=== PATIENT | male | born 1960 ===

== ENCOUNTER 2018-11-30 10:35 | Inpatient (IN) | payer MEDICAID ==
[2018-11-30] MEDS ORDERED: Sodium Chloride 0.9% 1,000 ML IV STA ×3 (11:25→15:54)
[2018-11-30 11:45] LABS: BASO % 0.4 % (0.0-2.0); EOS # 0.1 K/uL (0.0-0.7); EOS % 0.9 % (0.0-4.0); HEMOGLOBIN 15.2 g/dL (12.0-18.0); LYMPH # 0.8 K/uL (1.0-4.3); LYMPH % 6.6 % (20.0-40.0); MEAN CELL VOLUME 78.6 fl (80.0-94.0); MEAN CORPUSCULAR HEMOGLOBIN 25.7 pg (27.0-31.0); MEAN CORPUSCULAR HGB CONC 32.7 g/dL (33.0-37.0); MEAN PLATELET VOLUME 8.7 fl (7.2-11.7); MONO # 0.8 K/uL (0.0-0.8); MONO % 7.1 % (0.0-10.0); NEUT # 9.7 K/uL (1.8-7.0); PLATELET COUNT 187 K/uL (130-400); RBC 5.91 Mil/uL (4.40-5.90); RED CELL DISTRIBUTION WIDTH 13.8 % (11.5-14.5); WHITE BLOOD COUNT 11.4 K/uL (4.8-10.8)
[2018-11-30 11:46] LABS: VENOUS BLOOD GAS BASE EXCESS 2.8 mmol/L (0.0-2.0); VENOUS BLOOD GAS PCO2 40 mmHg (40-60); VENOUS BLOOD GAS PO2 26 mm/Hg (30-55); VENOUS BLOOD PH 7.44 (7.32-7.43)
--- NOTE | 2018-11-30 11:50 | ED PDOC ---
HPI: Eye Injury/Pain Time Seen by Provider: 11/30/18 11:13 Chief Complaint (Nursing): Eye Problem Chief Complaint (Provider): psoriasis History Per: Patient History/Exam Limitations: no limitations Onset/Duration Of Symptoms: Days (x6) Current Symptoms Are (Timing): Still Present Additional Complaint(s): 58 year old male with medical history of psoriasis, glaucoma, and pre-diabetes, presents to the emergency department with a complaint of "the worse headache in his life" for the past 6 days. He reports associated eye pain with vision, nausea and vomiting when lying on his back. Patient states symptoms do not feel like typical glaucoma and that he had the flu 1 week ago with full recovery. Additionally, patient received a Humira injection 1 week ago and has worsening redness and tenderness on left, lateral arm along area of psoriasis, in which, he states "might be infected". Of note, patient has an allergy to a component of Ibuprofen but not Ibuprofen itself, however, he is unsure what he can tolerate. PCP: none provided Past Medical History Reviewed: Historical Data, Nursing Documentation, Vital Signs Vital Signs: Last Vital Signs Temp 102.1 F H 11/30/18 11:26 Pulse 123 H 11/30/18 11:26 Resp 20 11/30/18 11:26 BP 142/73 11/30/18 11:26 Pulse Ox 98 11/30/18 11:26 - Medical History PMH: Diabetes (pre-) Other PMH: glaucoma; psoriasis - Family History Family History: States: Unknown Family Hx - Home Medications Home Medications: Ambulatory Orders Medication Instructions Recorded No Known Home Med 11/30/18 - Allergies Allergies/Adverse Reactions: Allergies Allergy/AdvReac Type Severity Reaction Status Date / Time detergent Allergy Mild RASH Uncoded 11/30/18 10:57 Review of Systems ROS Statement: Except As Marked, All Systems Reviewed And Found Negative Eyes: Positive for: Pain (bilaterally with positional movement) Gastrointestinal: Positive for: Nausea, Vomiting Musculoskeletal: Positive for: Arm Pain (left, lateral arm with redness) Neurological: Positive for: Headache Physical Exam - Reviewed Nursing Documentation Reviewed: Yes Vital Signs Reviewed: Yes - Physical Exam Appears: Positive for: Uncomfortable Head Exam: Positive for: ATRAUMATIC, NORMAL INSPECTION, NORMOCEPHALIC Skin: Positive for: Warm (area of psoriasis on all extremities with extensive area of erythema to left arm, psoriasis plaque ) Eye Exam: Positive for: Normal appearance, EOMI, PERRL, Other (squinting eyes, holding head in hands) ENT: Positive for: Normal ENT Inspection, TM Is/Are (clear bilaterally). Negative for: Pharyngeal Erythema Neck: Positive for: Normal, Painless ROM, Supple Cardiovascular/Chest: Positive for: Regular Rate, Rhythm Respiratory: Positive for: Normal Breath Sounds. 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 Negative for: Motor/Sensory Deficits - Laboratory Results Result Diagrams: 12/01/18 06:14 12/01/18 06:14 Lab Results: pO2 26 mm/Hg (30-55) L 11/30/18 11:29 VBG pH 7.44 (7.32-7.43) H 11/30/18 11:29 VBG pCO2 40 mmHg (40-60) 11/30/18 11:29 VBG HCO3 25.6 mmol/L 11/30/18 11:29 VBG Total CO2 28.4 mmol/L (22-28) H 11/30/18 11:29 VBG O2 Sat (Calc) 52.0 % (40-65) 11/30/18 11:29 VBG Base Excess 2.8 mmol/L (0.0-2.0) H 11/30/18 11:29 VBG Potassium 4.3 mmol/L (3.6-5.2) 11/30/18 11:29 Sodium 134.0 mmol/L (132-148) 11/30/18 11:29 Chloride 96.0 mmol/L (98-107) L 11/30/18 11:29 Glucose 163 mg/dL (75-110) H 11/30/18 11:29 Lactate 2.7 mmol/L (0.7-2.1) H 11/30/18 11:29 FiO2 21.0 % 11/30/18 11:29 - ECG O2 Sat by Pulse Oximetry: 98 (RA) Pulse Ox Interpretation: Normal Medical Decision Making Medical Decision Making: Time: 1125 Initial Plan: work-up for severe headache and bodyaches. rule-out intracranial pressure as patient reports headache is the worse in his life. Infectious work- up for possible cellulitis. * Labs with blood culture * CT head * CXR * IV fluids * Reglan IVP * Tylenol PO Time: 1203 --CXR FINDINGS: LUNGS: Basilar atelectasis/scarring. No active pulmonary disease. PLEURA: Mild elevation of the left hemidiaphragm. No significant pleural effusion identified, no pneumothorax apparent. CARDIOVASCULAR: Aortic atherosclerotic calcifications. Cardiomediastinal silhouette within normal limits. OSSEOUS STRUCTURES: Spinal degenerative changes. VISUALIZED UPPER ABDOMEN: Normal. OTHER FINDINGS: None. IMPRESSION: No active disease. Time: 1239 PROCEDURE: CT HEAD WITHOUT CONTRAST. HISTORY: worsening headache with vision change COMPARISON: None available. TECHNIQUE: Axial computed tomography images were obtained through the head/brain without intravenous contrast. Radiation dose: Total exam DLP = 796.93 mGy-cm. This CT exam was performed using one or more of the following dose reduction techniques: Automated exposure control, adjustment of the mA and/or kV according to patient size, and/or use of iterative reconstruction technique. FINDINGS: HEMORRHAGE: No intracranial hemorrhage. BRAIN: No mass effect or edema. Mild atrophy. Mild chronic microvascular ischemic changes. VENTRICLES: Unremarkable. No hydrocephalus. CALVARIUM: Unremarkable. PARANASAL SINUSES: Unremarkable as visualized. No significant inflammatory changes. MASTOID AIR CELLS: Unremarkable as visualized. No inflammatory changes. OTHER FINDINGS: None. IMPRESSION: No acute intracranial pathology. Mild age-related changes. 1530 Pt with improved symptoms. Pt continues to have erythema to left arm and now notices erythema to right leg. Labs show left shift but no elevated WBC. Pt states he wants to go home and will be given antibiotics for cellulitis coverage. Pt to follow up with PMD on Sunday. Will return to the emergency department if symptoms worsen or if new symptoms develop. 1545 On discharge, repeat vitals showed temperature and HR had gone back up. Pt meeting sepsis criteria but not severe sepsis. 3rd liter of IV fluids being given now. Given additional Tylenol and Clindamycin. Spoke with [employer] Erick Gonzalez for admission under Dr. Hull (pt's PMD is Lj Seaman). Scribe Attestation: Documented by Elvi Pandey, acting as a scribe for Marialuisa Aragon MD. Provider Scribe Attestation: All medical record entries made by the Scribe were at my direction and personally dictated by me. I have reviewed the chart and agree that the record accurately reflects my personal performance of the history, physical exam, medical decision making, and the department course for this patient. I have also personally directed, reviewed, and agree with the discharge instructions and disposition. Disposition - Clinical Impression Clinical Impression: Headache, Cellulitis - Disposition Disposition Time: 15:45 Condition: GUARDED
[2018-11-30 11:57] LABS: BLOOD UREA NITROGEN 15 mg/dl (9-20); CALCIUM 9.5 mg/dL (8.4-10.2); GFR NON-AFRICAN AMERICAN > 60
--- NOTE | 2018-11-30 12:07 | RAD ---
Date of service: 11/30/2018 HISTORY: possible admission COMPARISON: No prior. TECHNIQUE: 1 view obtained. FINDINGS: LUNGS: Basilar atelectasis/scarring. No active pulmonary disease. PLEURA: Mild elevation of the left hemidiaphragm. No significant pleural effusion identified, no pneumothorax apparent. CARDIOVASCULAR: Aortic atherosclerotic calcifications. Cardiomediastinal silhouette within normal limits. OSSEOUS STRUCTURES: Spinal degenerative changes. VISUALIZED UPPER ABDOMEN: Normal. OTHER FINDINGS: None. IMPRESSION: No active disease.
[2018-11-30 12:26] LABS: BANDS 5 % (0-2); EOSINOPHIL 1 % (0-7); LYMPHOCYTE 5 % (20-50); MONOCYTE 9 % (0-10); NEUTROPHIL 80 % (42-75); PLATELET ESTIMATE NORMAL (NORMAL); TOTAL CELLS COUNTED 100
--- NOTE | 2018-11-30 12:42 | CT ---
Date of service: 11/30/2018 PROCEDURE: CT HEAD WITHOUT CONTRAST. HISTORY: worsening headache with vision change COMPARISON: None available. TECHNIQUE: Axial computed tomography images were obtained through the head/brain without intravenous contrast. Radiation dose: Total exam DLP = 796.93 mGy-cm. This CT exam was performed using one or more of the following dose reduction techniques: Automated exposure control, adjustment of the mA and/or kV according to patient size, and/or use of iterative reconstruction technique. FINDINGS: HEMORRHAGE: No intracranial hemorrhage. BRAIN: No mass effect or edema. Mild atrophy. Mild chronic microvascular ischemic changes. VENTRICLES: Unremarkable. No hydrocephalus. CALVARIUM: Unremarkable. PARANASAL SINUSES: Unremarkable as visualized. No significant inflammatory changes. MASTOID AIR CELLS: Unremarkable as visualized. No inflammatory changes. OTHER FINDINGS: None. IMPRESSION: No acute intracranial pathology. Mild age-related changes.
[2018-11-30] MEDS ORDERED: Clindamycin 600mg/50ml D5W 600 MG/50 ML VIAL IVPB STA (15:49)
[2018-11-30 20:55] VITALS: BMI 33.5
[2018-11-30] MEDS: Piperacillin/Tazobact 3.375 GM in Sodium Chloride 0.9% 100 ML IVPB SCH (21:10)
[2018-12-01] MEDS: Clindamycin 600mg/50ml NS 600 MG/50 ML BAG IVPB SCH ×2 (00:01→09:18)
[2018-12-01] MEDS: Piperacillin/Tazobact 3.375 GM in Sodium Chloride 0.9% 100 ML IVPB SCH ×4 (03:27→22:14)
[2018-12-01 06:52] LABS: BASO # 0.1 K/uL (0.0-0.2); BASO % 0.3 % (0.0-2.0); HEMOGLOBIN 13.8 g/dL (12.0-18.0); LYMPH # 1.6 K/uL (1.0-4.3); LYMPH % 8.5 % (20.0-40.0); MEAN CELL VOLUME 78.2 fl (80.0-94.0); MEAN CORPUSCULAR HEMOGLOBIN 25.4 pg (27.0-31.0); MEAN CORPUSCULAR HGB CONC 32.5 g/dL (33.0-37.0); MEAN PLATELET VOLUME 8.6 fl (7.2-11.7); MONO # 1.6 K/uL (0.0-0.8); MONO % 8.3 % (0.0-10.0); NEUT # 15.9 K/uL (1.8-7.0); NEUT % 82.9 % (50.0-75.0); RBC 5.44 Mil/uL (4.40-5.90); RED CELL DISTRIBUTION WIDTH 13.9 % (11.5-14.5); WHITE BLOOD COUNT 19.2 K/uL (4.8-10.8)
[2018-12-01 07:05] LABS: ALB/GLOB RATIO 1.2 (1.0-2.1); ALBUMIN 3.7 g/dL (3.5-5.0); ALT/SGPT 43 U/L (21-72); AST/SGOT 35 U/L (17-59); BLOOD UREA NITROGEN 13 mg/dl (9-20); GFR NON-AFRICAN AMERICAN > 60
[2018-12-01] MEDS: Enoxaparin 40 mg Syringe SC SCH (09:18)
--- NOTE | 2018-12-01 12:48 | CP.PCM.CON ---
History of Present Illness - History of Present Illness History of Present Illness: 58 year old male with medical history of psoriasis and pre-diabetes, presents to the emergency department with a complaint of severe headache . He reports associated eye pain with vision, nausea and vomiting when lying on his back. Failed out pt rx for cellulitis with Bactrim Has redness streaking up right leg from psoriatic lesion on RLE + lymphangitis Additionally, patient received a Humira injection 1 week ago and has worsening redness and tenderness on left, lateral arm along area of psoriasis, - Medical History PMH: Diabetes (pre-) Psoriasis on Humira Other PMH: glaucoma; psoriasis - Home Medications Home Medications: Ambulatory Orders Medication Instructions Recorded Sulfamethoxazole/Trimethoprim 1 tab PO BID #20 tab 11/30/18 [Bactrim DS 800 mg-160 mg] - Review of Systems - Review of Systems All systems: reviewed and no additional remarkable complaints except - Constitutional Constitutional: Anorexia, Chills, Fever, Headache - EENT Eyes: absent: As Per HPI, Blind Spots, Blurred Vision, Change in Vision, Decre ased Night Vision, Diplopia, Discharge, Dry Eye, Exophthalmos, Floaters, Irritation, Itchy Eyes, Loss of Peripheral Vision, Pain, Photophobia, Requires Corrective Lenses, Sees Flashes, Spots in Vision, Tunnel Vision, Other Visual Disturbances, Loss of Vision, Other Ears: absent: As Per HPI, Decreased Hearing, Ear Discharge, Ear Pain, Tinnitus, Abnormal Hearing, Disequilibrium, Dizziness, Other Nose/Mouth/Throat: absent: As Per HPI, Epistaxis, Nasal Congestion, Nasal Discharge, Nasal Obstruction, Nasal Trauma, Nose Pain, Post Nasal Drip, Sinus P ain, Sinus Pressure, Bleeding Gums, Change in Voice, Dental Pain, Dry Mouth, Dysphagia, Halitosis, Hoarsness, Lip Swelling, Mouth Lesions, Mouth Pain, Odynophagia, Sore Throat, Throat Swelling, Tongue Swelling, Facial Pain, Neck Pain, Neck Mass, Other - Cardiovascular Cardiovascular: absent: As Per HPI, Acrocyanosis, Chest Pain, Chest Pain at Rest, Chest Pain with Activity, Claudication, Diaphoresis, Dyspnea, Dyspnea on Exertion, Edema, Irregular Heart Rhythm, Pain Radiating to Arm/Neck/Jaw, Leg Edema, Leg Ulcers, Lightheadedness, Orthopnea, Palpitations, Paroxysmal Nocturnal Dyspnea, Pedal Edema, Radiating Pain, Rapid Heart Rate, Slow Heart Rate, Syncope, Other - Respiratory Respiratory: absent: As Per HPI, Cough, Dyspnea, Hemoptysis, Dyspnea on Exertion, Wheezing, Snoring, Stridor, Pain on Inspiration, Chest Congestion, Excessive Mucous Production, Change in Mucous Color, Pain with Coughing, Other - Gastrointestinal Gastrointestinal: absent: As Per HPI, Abdominal Pain, Belching, Bloating, Change in Bowel Habits, Change in Stool Character, Coffee Ground Emesis, Constipation, Cramping, Diarrhea, Dyspepsia, Dysphagia, Early Satiety, Excessive Flatus, Fecal Incontinence, Heartburn, Hematemesis, Hematochezia, Loose Stools, Melena, Nausea, Odynophagia, Temesmus, Vomiting, Other - Genitourinary Genitourinary: absent: As Per HPI, Change in Urinary Stream, Difficulty Urinating, Dysuria, Flank Pain, Hematuria, Pyuria, Nocturia, Urinary Incontinence, Urinary Frequency, Urinary Hesitance, Urinary Urgency, Voiding Freq/Small Amts, Freq UTI, Hx Renal/Bladder Calculi, Hx /Renal Surgery, Bladder Distension, Other - Musculoskeletal Musculoskeletal: absent: As Per HPI, Abnormal Gait, Arthralgias, Atrophy, Back Pain, Deformity, Joint Swelling, Limited Range of Motion, Loss of Height, Muscle Cramps, Muscle Weakness, Myalgias, Neck Pain, Numbness, Radiating Pain into Limb, Stiffness, Tingling, Other - Integumentary Integumentary: As Per HPI - Neurological Neurological: As Per HPI - Psychiatric Psychiatric: absent: As Per HPI, Abnormal Sleep Pattern, Anhedonia, Anxiety, Auditory Hallucinations, Behavioral Changes, Change in Appetite, Change in Libido, Confusion, Depression, Difficulty Concentrating, Hallucinations, Homicidal Ideation, Hopelessness, Irritability, Memory Loss, Mood Swings, Panic Attacks, Paranoia, Suicidal Ideation, Visual Hallucinations, Tactile [place] llucinations, Other - Endocrine Endocrine: absent: As Per HPI, Change in Body Appearance, Change in Libido, Cold Intolorance, Deepening of Voice, Excessive Sweating, Fatigue, Flushing, Heat Intolorance, Increase in Ring/Shoe/Hat Size, Palpitations, Polydipsia, Polyphagia, Polyuria, Other - Hematologic/Lymphatic Hematologic: absent: As Per HPI, Easy Bleeding, Easy Bruising, Lymphadenopathy, Other Past Patient History - Past Medical History & Family History Past Medical History?: Yes - Past Social History Smoking Status: Never Smoked - CARDIAC Hx Cardiac Disorders: No - PULMONARY Hx Respiratory Disorders: No - NEUROLOGICAL Hx Neurological Disorder: No - HEENT Hx HEENT Problems: Yes Hx Glaucoma: Yes - RENAL Hx Chronic Kidney Disease: No - ENDOCRINE/METABOLIC Hx Endocrine Disorders: No - HEMATOLOGICAL/ONCOLOGICAL Hx Blood Disorders: No - INTEGUMENTARY Hx Dermatological Problems: Yes Hx Psoriasis: Yes - MUSCULOSKELETAL/RHEUMATOLOGICAL Hx Musculoskeletal Disorders: No Hx Falls: No - GASTROINTESTINAL Hx Gastrointestinal Disorders: No - GENITOURINARY/GYNECOLOGICAL Hx Genitourinary Disorders: No - PSYCHIATRIC Hx Psychophysiologic Disorder: No Hx Substance Use: No - SURGICAL HISTORY Hx Surgeries: Yes - ANESTHESIA Hx Anesthesia: Yes Hx Anesthesia Reactions: No Hx Malignant Hyperthermia: No Has any member of the family had a problem w/ anesthesia?: No Meds Allergies/Adverse Reactions: Allergies Allergy/AdvReac Type Severity Reaction Status Date / Time detergent Allergy Mild RASH Uncoded 11/30/18 10:57 - Medications Medications: Current Medications Acetaminophen (Tylenol 325mg Tab) 650 mg PO Q6 PRN PRN Reason: Pain, Mild (1-3) Enoxaparin Sodium (Lovenox) 40 mg SC DAILY ISSA; Protocol Last Admin: 12/01/18 09:18 Dose: 40 mg Clindamycin Phosphate (Cleocin 600mg/50ml Ns) 600 mg in 50 mls @ 100 mls/hr IVPB Q8 ISSA; Protocol Last Admin: 12/01/18 09:18 Dose: 100 mls/hr Piperacillin Sod/Tazobactam (Sod 3.375 gm/ Sodium Chloride) 100 mls @ 100 mls/hr IVPB Q6 ISSA; Protocol Last Admin: 12/01/18 09:18 Dose: 100 mls/hr Morphine Sulfate (Morphine) 2 mg IVP Q4 PRN PRN Reason: Pain, severe (8-10) Tramadol HCl (Ultram) 50 mg PO Q6 PRN PRN Reason: Pain, moderate (4-7) Last Admin: 12/01/18 11:15 Dose: 50 mg Physical Exam - Constitutional Appears: Toxic, In Acute Distress - Head Exam Head Exam: ATRAUMATIC, NORMAL INSPECTION, NORMOCEPHALIC - Eye Exam Eye Exam: EOMI, PERRL. absent: Scleral icterus - ENT Exam ENT Exam: Mucous Membranes Dry, Normal External Ear Exam - Neck Exam Neck exam: Negative for: Lymphadenopathy - Respiratory Exam Respiratory Exam: Decreased Breath Sounds, Clear to Auscultation Bilateral - Cardiovascular Exam Cardiovascular Exam: REGULAR RHYTHM, +S1, +S2 - GI/Abdominal Exam GI & Abdominal Exam: Diminished Bowel Sounds, Soft. absent: Tenderness - Rectal Exam Rectal Exam: Deferred - Exam Exam: NORMAL INSPECTION - Extremities Exam Extremities exam: Positive for: pedal pulses present. Negative for: calf tenderness, normal inspection, pedal edema, tenderness - Back Exam Back exam: FULL ROM. absent: CVA tenderness (L), CVA tenderness (R), paraspinal tenderness - Neurological Exam Neurological exam: Alert, CN II-XII Intact, Oriented x3, Reflexes Normal - Psychiatric Exam Psychiatric exam: Depressed - Skin Skin Exam: Erythema Additional comments: multiple psoriatic lesions with surrounding cellulitis on arms and legs lesion on RLE is the worst- has lymphangitis extending up the leg Results - Vital Signs Recent Vital Signs: Last Vital Signs Temp 98.1 F 12/01/18 11:48 Pulse 89 12/01/18 11:48 Resp 20 12/01/18 11:48 BP 115/74 12/01/18 11:48 Pulse Ox 96 12/01/18 11:48 - Labs Result Diagrams: 12/01/18 06:14 12/01/18 06:14 Labs: Laboratory Results - last 24 hr 11/30/18 12/01/18 12/01/18 17:08 06:14 06:14 WBC 19.2 H D RBC 5.44 Hgb 13.8 Hct 42.6 MCV 78.2 L MCH 25.4 L MCHC 32.5 L RDW 13.9 Plt Count 185 MPV 8.6 Neut % (Auto) 82.9 H Lymph % (Auto) 8.5 L Benson % (Auto) 8.3 Eos % (Auto) 0.0 Baso % (Auto) 0.3 Neut # (Auto) 15.9 H Lymph # (Auto) 1.6 Benson # (Auto) 1.6 H Eos # (Auto) 0.0 Baso # (Auto) 0.1 Sodium 137 Potassium 4.0 Chloride 102 Carbon Dioxide 25 Anion Gap 14 BUN 13 Creatinine 0.9 Est GFR ( Amer) > 60 Est GFR (Non-Af Amer) > 60 Random Glucose 119 H Hemoglobin A1c Lactic Acid 2.2 H Calcium 9.0 Total Bilirubin 1.0 AST 35 ALT 43 Alkaline Phosphatase 116 Total Protein 6.8 Albumin 3.7 Globulin 3.1 Albumin/Globulin Ratio 1.2 12/01/18 12/01/18 06:14 06:14 WBC RBC Hgb Hct MCV MCH MCHC RDW Plt Count MPV Neut % (Auto) Lymph % (Auto) Benson % (Auto) Eos % (Auto) Baso % (Auto) Neut # (Auto) Lymph # (Auto) Benson # (Auto) Eos # (Auto) Baso # (Auto) Sodium Potassium Chloride Carbon Dioxide Anion Gap BUN Creatinine Est GFR ( Amer) Est GFR (Non-Af Amer) Random Glucose Hemoglobin A1c 6.3 Lactic Acid 1.7 Calcium Total Bilirubin AST ALT Alkaline Phosphatase Total Protein Albumin Globulin Albumin/Globulin Ratio Assessment & Plan (1) Sepsis Status: Acute (2) Cellulitis Status: Acute (3) Headache Status: Acute (4) Psoriatic arthropathy Status: Acute (5) Psoriasis Status: Acute - Assessment and Plan (Free Text) Assessment: fever , leukocytosis and headache with lactic acidosis in a 58 yo male with severe cellulitis/ lymphangitis R leg / sepsis on Humira for Psoriasis - ( Immunocompromised state ) Need to cont IV antibiotics await cultures
--- NOTE | 2018-12-01 23:22 | CP.PCM.HP ---
History of Present Illness - History of Present Illness History of Present Illness: HPI: 58 y/o male with a PMH of psoriasis and pre-DM presented to the ED with a headache, which the pt described as the worst in his life, as well as associated N/V and eye pain. Of note, the pt received his first injection of Zoila 1 week ago for Psoriasis. Since then, the pt reports worsening erythema to the left upper extremity and right leg. He was treated with Bactrim, outpatient, however no relief was reported. PMH: Pre-diabetes, Glaucoma, Psoriasis. PSH: None. Allergies: Detergent, unspecified ingredient in ibuprofen. Subjective Review of Systems: Reviewed and no additional remarkable complaints except reddened painful skin to bilateral upper extremities and right leg. Objective Vital Signs Stable Appears: Anxious, Non-toxic, No Acute Distress. Head Exam: NORMAL INSPECTION, normocephalic. Eye Exam: Normal eye inspection, EOMI, PERRLA. Respiratory Exam: NORMAL BREATHING PATTERN, breath sounds clear bilaterally. Cardiovascular Exam: +S1, +S2. RRR. GI & Abdominal Exam: Soft, diffuse tenderness, distended. Bowel sounds normoactive. Neurological Exam: Alert, Awake, Oriented x3. Musculoskeletal Exam: 5/5 BUE strength, 5/5 BLE strength. Psychiatric exam: Normal mood. Calm and cooperative. Skin Exam: Erythema and psoriatic lesions to left upper extremity. Area of cellulitis to right leg. Assessment/Impression/Plan: 1.) Cellulitis -Started on Clindamycin and Zosyn. -Pending blood and wound cultures. -Obtain hgb a1c. -Infectious disease consult input appreciated. -Monitor leukocytosis, s/s infection. -Lactate down to 1.7 this morning. -Continue current tx. Present on Admission - Present on Admission Any Indicators Present on Admission: No Past Patient History - Past Medical History & Family History Past Medical History?: Yes - Past Social History Smoking Status: Never Smoked - CARDIAC Hx Cardiac Disorders: No - PULMONARY Hx Respiratory Disorders: No - NEUROLOGICAL Hx Neurological Disorder: No - HEENT Hx HEENT Problems: Yes Hx Glaucoma: Yes - RENAL Hx Chronic Kidney Disease: No - ENDOCRINE/METABOLIC Hx Endocrine Disorders: No - HEMATOLOGICAL/ONCOLOGICAL Hx Blood Disorders: No - INTEGUMENTARY Hx Dermatological Problems: Yes Hx Psoriasis: Yes - MUSCULOSKELETAL/RHEUMATOLOGICAL Hx Musculoskeletal Disorders: No Hx Falls: No - GASTROINTESTINAL Hx Gastrointestinal Disorders: No - GENITOURINARY/GYNECOLOGICAL Hx Genitourinary Disorders: No - PSYCHIATRIC Hx Psychophysiologic Disorder: No Hx Substance Use: No - SURGICAL HISTORY Hx Surgeries: Yes - ANESTHESIA Hx Anesthesia: Yes Hx Anesthesia Reactions: No Hx Malignant Hyperthermia: No Has any member of the family had a problem w/ anesthesia?: No Meds Allergies/Adverse Reactions: Allergies Allergy/AdvReac Type Severity Reaction Status Date / Time detergent Allergy Mild RASH Uncoded 11/30/18 10:57 Results - Vital Signs Recent Vital Signs: Last Vital Signs Temp 99.4 F 12/01/18 19:30 Pulse 103 H 12/01/18 21:00 Resp 18 12/01/18 19:30 BP 137/86 12/01/18 19:30 Pulse Ox 96 12/01/18 19:30 - Labs Result Diagrams: 12/01/18 06:14 12/01/18 06:14 Labs: Laboratory Results - last 24 hr 12/01/18 12/01/18 12/01/18 06:14 06:14 06:14 WBC 19.2 H D RBC 5.44 Hgb 13.8 Hct 42.6 MCV 78.2 L MCH 25.4 L MCHC 32.5 L RDW 13.9 Plt Count 185 MPV 8.6 Neut % (Auto) 82.9 H Lymph % (Auto) 8.5 L Drew % (Auto) 8.3 Eos % (Auto) 0.0 Baso % (Auto) 0.3 Neut # (Auto) 15.9 H Lymph # (Auto) 1.6 Drew # (Auto) 1.6 H Eos # (Auto) 0.0 Baso # (Auto) 0.1 Sodium 137 Potassium 4.0 Chloride 102 Carbon Dioxide 25 Anion Gap 14 BUN 13 Creatinine 0.9 Est GFR ( Amer) > 60 Est GFR (Non-Af Amer) > 60 Random Glucose 119 H Hemoglobin A1c 6.3 Lactic Acid Calcium 9.0 Total Bilirubin 1.0 AST 35 ALT 43 Alkaline Phosphatase 116 Total Protein 6.8 Albumin 3.7 Globulin 3.1 Albumin/Globulin Ratio 1.2 Procalcitonin 12/01/18 12/01/18 12/01/18 06:14 15:05 15:05 WBC RBC Hgb Hct MCV MCH MCHC RDW Plt Count MPV Neut % (Auto) Lymph % (Auto) Drew % (Auto) Eos % (Auto) Baso % (Auto) Neut # (Auto) Lymph # (Auto) Drew # (Auto) Eos # (Auto) Baso # (Auto) Sodium Potassium Chloride Carbon Dioxide Anion Gap BUN Creatinine Est GFR ( Amer) Est GFR (Non-Af Amer) Random Glucose Hemoglobin A1c Lactic Acid 1.7 1.6 Calcium Total Bilirubin AST ALT Alkaline Phosphatase Total Protein Albumin Globulin Albumin/Globulin Ratio Procalcitonin 3.18 H Assessment & Plan (1) Cellulitis Status: Acute
[2018-12-02] MEDS: Piperacillin/Tazobact 3.375 GM in Sodium Chloride 0.9% 100 ML IVPB SCH ×4 (04:48→21:58)
[2018-12-02] MEDS: Enoxaparin 40 mg Syringe SC SCH (08:03)
[2018-12-02 13:52] LABS: HEMOGLOBIN 14.2 g/dL (12.0-18.0); MEAN CELL VOLUME 78.7 fl (80.0-94.0); MEAN CORPUSCULAR HEMOGLOBIN 26.1 pg (27.0-31.0); MEAN CORPUSCULAR HGB CONC 33.1 g/dL (33.0-37.0); RBC 5.43 Mil/uL (4.40-5.90); RED CELL DISTRIBUTION WIDTH 13.8 % (11.5-14.5); WHITE BLOOD COUNT 17.3 K/uL (4.8-10.8)
[2018-12-02 14:05] LABS: BLOOD UREA NITROGEN 14 mg/dl (9-20); CALCIUM 9.4 mg/dL (8.4-10.2); GFR NON-AFRICAN AMERICAN > 60
--- NOTE | 2018-12-02 19:42 | CP.PCM.PN ---
Subjective - Date & Time of Evaluation Date of Evaluation: 12/02/18 Time of Evaluation: 10:00 - Subjective Subjective: patient seen and examined at bedside. Interim events noted still with cellulitis and discomfort, fever improved denies cp/sob/fever/chills. available diagnostic data reviewed Review of Systems All systems: reviewed and no additional remarkable complaints except mentioned above Objective Vital Signs Stable - Constitutional Appears: Non-toxic, No Acute Distress Head Exam: NORMAL INSPECTION Eye Exam: Normal appearance Respiratory Exam: NORMAL BREATHING PATTERN Cardiovascular Exam: +S1, +S2 GI & Abdominal Exam: Soft Neurological Exam: Alert, Awake Psychiatric exam: Normal Affect, Normal Mood Skin Exam: Normal Color, Warm, cellulitis noted of right leg Assessment and Plan monitor vitals monitor labs Cont meds Cont tx consultants appreciated input c/w IV abx monitor cultures rest of plan as ordered Objective - Vital Signs/Intake and Output Vital Signs (last 24 hours): Temp Pulse Resp BP Pulse Ox 99.0 F 81 18 122/76 98 12/02/18 16:06 12/02/18 16:06 12/02/18 16:06 12/02/18 16:06 12/02/18 16:06 - Medications Medications: Current Medications Acetaminophen (Tylenol 325mg Tab) 650 mg PO Q6 PRN PRN Reason: Pain, Mild (1-3) Enoxaparin Sodium (Lovenox) 40 mg SC DAILY [facility]; Protocol Last Admin: 12/02/18 08:03 Dose: 40 mg Hydrocortisone (Cortizone 1% Cream) 1 applic TOP BID [facility] Last Admin: 12/02/18 17:19 Dose: 1 applic Piperacillin Sod/Tazobactam (Sod 3.375 gm/ Sodium Chloride) 100 mls @ 100 mls/hr IVPB Q6 [facility]; Protocol Last Admin: 12/02/18 17:19 Dose: 100 mls/hr Vancomycin HCl 1 gm/ Sodium (Chloride) 250 mls @ 166.667 mls/hr IVPB Q12H [facility]; Protocol Last Admin: 12/02/18 13:40 Dose: 166.667 mls/hr Morphine Sulfate (Morphine) 2 mg IVP Q4 PRN PRN Reason: Pain, severe (8-10) Mupirocin (Bactroban Ointment) 1 applic TOP BID [facility] Last Admin: 12/02/18 17:46 Dose: 1 applic Tramadol HCl (Ultram) 50 mg PO Q6 PRN PRN Reason: Pain, moderate (4-7) Last Admin: 12/01/18 16:39 Dose: 50 mg - Labs Labs: 12/02/18 13:28 12/02/18 13:28 Assessment and Plan (1) Cellulitis Status: Acute (2) Psoriasis Status: Acute
--- NOTE | 2018-12-02 21:44 | CP.PCM.PN ---
Subjective - Date & Time of Evaluation Date of Evaluation: 12/02/18 Time of Evaluation: 07:00 - Subjective Subjective: 58 year old male with medical history of psoriasis and pre-diabetes, presents to the emergency department with a complaint of severe headache . He reports associated eye pain with vision, nausea and vomiting when lying on his back. Failed out pt rx for cellulitis with Bactrim Has redness streaking up right leg from psoriatic lesion on RLE + lymphangitis Additionally, patient received a Humira injection 1 week ago and has worsening redness and tenderness on left, lateral arm along area of psoriasis, Objective - Vital Signs/Intake and Output Vital Signs (last 24 hours): Temp Pulse Resp BP Pulse Ox 98.7 F 83 18 119/75 95 12/02/18 20:20 12/02/18 20:20 12/02/18 20:20 12/02/18 20:20 12/02/18 20:20 - Medications Medications: Current Medications Acetaminophen (Tylenol 325mg Tab) 650 mg PO Q6 PRN PRN Reason: Pain, Mild (1-3) Enoxaparin Sodium (Lovenox) 40 mg SC DAILY [facility]; Protocol Last Admin: 12/02/18 08:03 Dose: 40 mg Hydrocortisone (Cortizone 1% Cream) 1 applic TOP BID [facility] Last Admin: 12/02/18 17:19 Dose: 1 applic Piperacillin Sod/Tazobactam (Sod 3.375 gm/ Sodium Chloride) 100 mls @ 100 mls/hr IVPB Q6 [facility]; Protocol Last Admin: 12/02/18 17:19 Dose: 100 mls/hr Vancomycin HCl 1 gm/ Sodium (Chloride) 250 mls @ 166.667 mls/hr IVPB Q12H [facility]; Protocol Last Admin: 12/02/18 13:40 Dose: 166.667 mls/hr Morphine Sulfate (Morphine) 2 mg IVP Q4 PRN PRN Reason: Pain, severe (8-10) Mupirocin (Bactroban Ointment) 1 applic TOP BID [facility] Last Admin: 12/02/18 17:46 Dose: 1 applic Tramadol HCl (Ultram) 50 mg PO Q6 PRN PRN Reason: Pain, moderate (4-7) Last Admin: 12/01/18 16:39 Dose: 50 mg - Labs Labs: 12/02/18 13:28 12/02/18 13:28 - Constitutional Appears: Non-toxic, Chronically Ill - Head Exam Head Exam: NORMOCEPHALIC - Eye Exam Eye Exam: absent: Scleral icterus Pupil Exam: NORMAL ACCOMODATION - ENT Exam ENT Exam: Mucous Membranes Dry, Normal External Ear Exam - Neck Exam Neck Exam: Normal Inspection - Respiratory Exam Respiratory Exam: Decreased Breath Sounds - Cardiovascular Exam Cardiovascular Exam: REGULAR RHYTHM - GI/Abdominal Exam GI & Abdominal Exam: Soft - Rectal Exam Rectal Exam: Deferred - Exam Exam: NORMAL INSPECTION - Extremities Exam Extremities Exam: absent: Pedal Edema - Back Exam Back Exam: absent: CVA tenderness (L), CVA tenderness (R) - Neurological Exam Neurological Exam: Alert, Awake, CN II-XII Intact, Oriented x3 - Psychiatric Exam Psychiatric exam: Depressed - Skin Skin Exam: Erythema, Warm Additional comments: areas of cellulitis and lymphangitis to both lower extremities Assessment and Plan (1) Sepsis Status: Acute (2) Cellulitis Status: Acute (3) Headache Status: Acute (4) Psoriatic arthropathy Status: Acute (5) Psoriasis Status: Acute - Assessment and Plan (Free Text) Assessment: 58 year old male with medical history of psoriasis and pre-diabetes, presents to the emergency department with a complaint of severe headache . He reports associated eye pain with vision, nausea and vomiting when lying on his back. Failed out pt rx for cellulitis with Bactrim Has redness streaking up right leg from psoriatic lesion on RLE + lymphangitis Additionally, patient received a Humira injection 1 week ago and has worsening redness and tenderness on left, lateral arm along area of psoriasis, cont IV antibiotics and skin care await cultures
[2018-12-03] MEDS: Piperacillin/Tazobact 3.375 GM in Sodium Chloride 0.9% 100 ML IVPB SCH ×3 (03:14→16:06)
[2018-12-03] MEDS: Enoxaparin 40 mg Syringe SC SCH (08:04)
--- NOTE | 2018-12-03 10:43 | CP.PCM.PN ---
Subjective - Date & Time of Evaluation Date of Evaluation: 12/03/18 Time of Evaluation: 08:00 - Subjective Subjective: 58 year old male with medical history of psoriasis and pre-diabetes, presents to the emergency department with a complaint of severe headache . He reports associated eye pain with vision, nausea and vomiting when lying on his back. Failed out pt rx for cellulitis with Bactrim Has redness streaking up right leg from psoriatic lesion on RLE + lymphangitis Additionally, patient received a Humira injection 1 week ago and has worsening redness and tenderness on left, lateral arm along area of psoriasis, Objective - Vital Signs/Intake and Output Vital Signs (last 24 hours): Temp Pulse Resp BP Pulse Ox 98.6 F 74 16 121/78 97 12/03/18 08:06 12/03/18 08:06 12/03/18 08:06 12/03/18 08:06 12/03/18 08:06 - Medications Medications: Current Medications Acetaminophen (Tylenol 325mg Tab) 650 mg PO Q6 PRN PRN Reason: Pain, Mild (1-3) Enoxaparin Sodium (Lovenox) 40 mg SC DAILY [facility]; Protocol Last Admin: 12/03/18 08:04 Dose: 40 mg Hydrocortisone (Cortizone 1% Cream) 1 applic TOP BID [facility] Last Admin: 12/03/18 08:03 Dose: 1 applic Piperacillin Sod/Tazobactam (Sod 3.375 gm/ Sodium Chloride) 100 mls @ 100 mls/hr IVPB Q6 [facility]; Protocol Last Admin: 12/03/18 10:07 Dose: 100 mls/hr Vancomycin HCl 1 gm/ Sodium (Chloride) 250 mls @ 166.667 mls/hr IVPB Q12H [facility]; Protocol Last Admin: 12/03/18 00:36 Dose: 166.667 mls/hr Morphine Sulfate (Morphine) 2 mg IVP Q4 PRN PRN Reason: Pain, severe (8-10) Mupirocin (Bactroban Ointment) 1 applic TOP BID [facility] Last Admin: 12/03/18 08:03 Dose: 1 applic Tramadol HCl (Ultram) 50 mg PO Q6 PRN PRN Reason: Pain, moderate (4-7) Last Admin: 12/02/18 23:08 Dose: 50 mg - Labs Labs: 12/02/18 13:28 12/02/18 13:28 - Constitutional Appears: Non-toxic, Chronically Ill - Head Exam Head Exam: ATRAUMATIC, NORMAL INSPECTION, NORMOCEPHALIC - Eye Exam Eye Exam: EOMI, Normal appearance, PERRL Pupil Exam: NORMAL ACCOMODATION, PERRL - ENT Exam ENT Exam: Mucous Membranes Moist, Normal Exam - Neck Exam Neck Exam: Full ROM, Normal Inspection. absent: Lymphadenopathy - Respiratory Exam Respiratory Exam: Clear to Ausculation Bilateral, NORMAL BREATHING PATTERN - Cardiovascular Exam Cardiovascular Exam: REGULAR RHYTHM, +S1, +S2. absent: Murmur - GI/Abdominal Exam GI & Abdominal Exam: Soft, Normal Bowel Sounds. absent: Tenderness - Rectal Exam Rectal Exam: Deferred - Exam Exam: NORMAL INSPECTION - Extremities Exam Extremities Exam: Full ROM, Normal Capillary Refill, Pedal Edema. absent: Joint Swelling, Normal Inspection - Back Exam Back Exam: NORMAL INSPECTION - Neurological Exam Neurological Exam: Alert, Awake, CN II-XII Intact, Normal Gait, Oriented x3 - Psychiatric Exam Psychiatric exam: Normal Affect, Normal Mood - Skin Skin Exam: Dry, Erythema, Intact, Warm Assessment and Plan (1) Sepsis Status: Acute (2) Cellulitis Status: Acute (3) Headache Status: Acute (4) Psoriatic arthropathy Status: Acute (5) Psoriasis Status: Acute - Assessment and Plan (Free Text) Assessment: cont IV antibiotics and wound care
[2018-12-03 10:47] LABS: HEMOGLOBIN 13.7 g/dL (12.0-18.0); MEAN CELL VOLUME 78.9 fl (80.0-94.0); MEAN CORPUSCULAR HEMOGLOBIN 25.8 pg (27.0-31.0); MEAN CORPUSCULAR HGB CONC 32.7 g/dL (33.0-37.0); RBC 5.32 Mil/uL (4.40-5.90); RED CELL DISTRIBUTION WIDTH 13.9 % (11.5-14.5); WHITE BLOOD COUNT 11.5 K/uL (4.8-10.8)
--- NOTE | 2018-12-03 11:08 | CP.PCM.PCO ---
Assessment/Plan - Assessment and Plan (Free Text) Assessment: Patient seen and examined this morning. VSS, patient afebrile >24 hours Leukocytosis trending down. Patient feels better, redness slightly improved. Denies chest pain, fevers, nausea vomiting or diarrhea. Patient continues on iv zosyn and iv vancomycin, Discussed with Dr Neal, patient will continue these antibiotics for another 7- 10 days. Will refer to tcu for further treatment Discussed with [employer] Gonzalez with medical team.
[2018-12-03 15:58] VITALS: BP 115/76; PULSE 81; RESP 18; TEMP 97.9; O2SAT 95
--- NOTE | 2018-12-04 00:38 | CP.PCM.DIS ---
Provider - Provider Date of Admission: 11/30/18 15:52 Attending physician: Alfredo Hull MD Consults: 11/30/18 17:36 Infectious Disease Consult Stat Comment: Consulting Provider: Chadd Neal Consulting Physician: Chadd Neal Reason for Consult: sepsis criteria, cellulitis Time Spent in preparation of Discharge (in minutes): 30 Diagnosis - Discharge Diagnosis (1) Cellulitis Status: Acute Hospital Course - Lab Results Lab Results: Micro Results 12/01/18 22:24 Naris MRSA Culture (Admit) - Final MRSA NOT DETECTED 11/30/18 14:27 Arm - Left Gram Stain - Final 11/30/18 14:27 Arm - Left Wound Culture - Preliminary Gram Negative Boyd Gram Positive Cocci 11/30/18 11:30 Blood Blood Culture - Preliminary NO GROWTH AFTER 3 DAYS 11/30/18 10:30 Blood Blood Culture - Preliminary NO GROWTH AFTER 48 HOURS 11/30/18 10:18 Blood-Venous Blood Culture - Preliminary NO GROWTH AFTER 48 HOURS Most Recent Lab Values WBC 11.5 K/uL (4.8-10.8) H 12/03/18 10:20 RBC 5.32 Mil/uL (4.40-5.90) 12/03/18 10:20 Hgb 13.7 g/dL (12.0-18.0) 12/03/18 10:20 Hct 42.0 % (35.0-51.0) 12/03/18 10:20 MCV 78.9 fl (80.0-94.0) L 12/03/18 10:20 MCH 25.8 pg (27.0-31.0) L 12/03/18 10:20 MCHC 32.7 g/dL (33.0-37.0) L 12/03/18 10:20 RDW 13.9 % (11.5-14.5) 12/03/18 10:20 Plt Count 252 K/uL (130-400) 12/03/18 10:20 MPV 8.6 fl (7.2-11.7) 12/01/18 06:14 Neut % (Auto) 82.9 % (50.0-75.0) H 12/01/18 06:14 Lymph % (Auto) 8.5 % (20.0-40.0) L 12/01/18 06:14 [place]ette % (Auto) 8.3 % (0.0-10.0) 12/01/18 06:14 Eos % (Auto) 0.0 % (0.0-4.0) 12/01/18 06:14 Baso % (Auto) 0.3 % (0.0-2.0) 12/01/18 06:14 Neut # (Auto) 15.9 K/uL (1.8-7.0) H 12/01/18 06:14 Lymph # (Auto) 1.6 K/uL (1.0-4.3) 12/01/18 06:14 [place] # (Auto) 1.6 K/uL (0.0-0.8) H 12/01/18 06:14 Eos # (Auto) 0.0 K/uL (0.0-0.7) 12/01/18 06:14 Baso # (Auto) 0.1 K/uL (0.0-0.2) 12/01/18 06:14 Neutrophils % (Manual) 80 % (42-75) H 11/30/18 11:40 Band Neutrophils % 5 % (0-2) H 11/30/18 11:40 Lymphocytes % (Manual) 5 % (20-50) L 11/30/18 11:40 Monocytes % (Manual) 9 % (0-10) 11/30/18 11:40 Eosinophils % (Manual) 1 % (0-7) 11/30/18 11:40 Platelet Estimate Normal (NORMAL) 11/30/18 11:40 RBC Morphology Normal (NORMAL) 11/30/18 11:40 pO2 26 mm/Hg (30-55) L 11/30/18 11:29 VBG pH 7.44 (7.32-7.43) H 11/30/18 11:29 VBG pCO2 40 mmHg (40-60) 11/30/18 11:29 VBG HCO3 25.6 mmol/L 11/30/18 11:29 VBG Total CO2 28.4 mmol/L (22-28) H 11/30/18 11:29 VBG O2 Sat (Calc) 52.0 % (40-65) 11/30/18 11:29 VBG Base Excess 2.8 mmol/L (0.0-2.0) H 11/30/18 11:29 VBG Potassium 4.3 mmol/L (3.6-5.2) 11/30/18 11:29 Sodium 134.0 mmol/L (132-148) 11/30/18 11:29 Chloride 96.0 mmol/L (98-107) L 11/30/18 11:29 Glucose 163 mg/dL (75-110) H 11/30/18 11:29 Lactate 2.7 mmol/L (0.7-2.1) H 11/30/18 11:29 FiO2 21.0 % 11/30/18 11:29 Sodium 137 mmol/l (132-148) 12/02/18 13:28 Potassium 3.8 MMOL/L (3.6-5.0) 12/02/18 13:28 Chloride 99 mmol/L (98-107) 12/02/18 13:28 Carbon Dioxide 29 mmol/L (22-30) 12/02/18 13:28 Anion Gap 13 (10-20) 12/02/18 13:28 BUN 14 mg/dl (9-20) 12/02/18 13:28 Creatinine 0.9 mg/dl (0.8-1.5) 12/02/18 13:28 Est GFR ( Amer) > 60 12/02/18 13:28 Est GFR (Non-Af Amer) > 60 12/02/18 13:28 Random Glucose 111 mg/dL (75-110) H 12/02/18 13:28 Hemoglobin A1c 6.4 % (4.2-6.5) 12/02/18 04:25 Lactic Acid 1.4 mmol/L (0.7-2.1) 12/02/18 13:28 Calcium 9.4 mg/dL (8.4-10.2) 12/02/18 13:28 Total Bilirubin 1.0 mg/dl (0.2-1.3) 12/01/18 06:14 AST 35 U/L (17-59) 12/01/18 06:14 ALT 43 U/L (21-72) 12/01/18 06:14 Alkaline Phosphatase 116 U/L (38-126) 12/01/18 06:14 Total Protein 6.8 G/DL (6.3-8.2) 12/01/18 06:14 Albumin 3.7 g/dL (3.5-5.0) 12/01/18 06:14 Globulin 3.1 gm/dL (2.2-3.9) 12/01/18 06:14 Albumin/Globulin Ratio 1.2 (1.0-2.1) 12/01/18 06:14 Procalcitonin 3.18 NG/ML (0.19-0.49) H 12/01/18 15:05 Venous Blood Potassium 4.3 mmol/L (3.6-5.2) 11/30/18 11:29 Vancomycin Trough 5.2 ug/mL (5.0-10.0) 12/02/18 13:28 HIV 1&2 Antibody Screen Negative (NEGATIVE) 12/02/18 04:25 - Hospital Course Hospital Course: Pt was admitted for cellulitis of the left arm and right leg. Infectious disease was consulted. The pt received Zosyn and Vancomycin antibiotics. After noted improvement, the Pt was discharged to TCU, where he will continue IV Vancomycin and Zosyn. Discharge Exam - Head Exam Head Exam: ATRAUMATIC, NORMAL INSPECTION, NORMOCEPHALIC - Eye Exam Eye Exam: EOMI, Normal appearance, PERRL Pupil Exam: NORMAL ACCOMODATION, PERRL - ENT Exam ENT Exam: Mucous Membranes Moist - Neck Exam Neck exam: Normal Inspection - Respiratory Exam Respiratory Exam: NORMAL BREATHING PATTERN - Cardiovascular Exam Cardiovascular Exam: REGULAR RHYTHM - GI/Abdominal Exam GI & Abdominal Exam: Normal Bowel Sounds - Extremities Exam Extremities exam: normal inspection - Back Exam Back exam: NORMAL INSPECTION - Neurological Exam Neurological exam: Alert, Oriented x3 - Psychiatric Exam Psychiatric exam: Normal Affect, Normal Mood - Skin Additional comments: RLE and LUE redness/cellulitis Discharge Plan - Discharge Medications Prescriptions: Piperacill/Tazo 3.375gm in Dex [Zosyn 3.375 Gm IV] 3.375 gm IVPB Q6 #15 bag Vancomycin 1gm in NS 250ml [Vancomycin 1gm] 1 gm IVPB Q12 #14 bag - Follow Up Plan Condition: GUARDED Disposition: REHAB FACILITY/REHAB UNIT Instructions: Cellulitis (Skin Infection), Adult (DC), Headache, Adult (DC) Additional Instructions: Take antibiotics twice per day and take Motrin or Tylenol for fever. Follow up with primary medical doctor on Sunday. If fever, redness, pain, or other symptoms worsen, return to the emergency department immediately.
--- NOTE | 2018-12-04 23:54 | PQF ---
PROVIDER RESPONSE TEXT: The diagnosis of sepsis was present on arrival to the ED. The patient's initial workup revealed an el evated lactate, WBC count, heart rate, and temperature. However, with treatment, the sepsis resolved, as evidenced by the lactate, WBC, temperature, and pulse returning to normal limits. REVIEWER QUERY TEXT: Conflicting Documentation Clarification Physician?s Documentation Request This Form is Not a Permanent Document in the Medical Record Pt Name: JAYLON PURCELL MR #: [id number] Payor: MEDICAID [facility] Unit/Bed: .[id number]-H415-1 Adm Date: 11/30/2018 3:52:00 PM Reviewer: Johanny Vegas Ext. Query Date: 12/04/2018 1:54:51 PM Conflicting Documentation Clarification [id number] By submitting this query, we are merely seeking further clarification of documentation to accurately reflect all conditions that you are monitoring, evaluating, treating or that extend the hospitalizati on or utilize additional resources of care. Please utilize your independent clinical judgment when ad dressing the question(s) below. Dear Doctor Grupo Gonzalez, The patient?s Clinical Indicators include: ID: 58 year old male with medical history of psoriasis and pre-diabetes, presents to the emergency de partment with a complaint of severe headache .He reports associated eye pain with vision, nausea and vomiting when lying on his back. Multiple psoriatic lesions with surrounding cellulitis on arms and l egs Failed out pt rx for cellulitis with Bactrim Has redness streaking up right leg from psoriatic lesion on RLE + lymphangitis IMP: severe cellulitis/ lymphangitis R leg / sepsis on Humira for Psoriasis - ( Immunocompromised sta te ) IVAB A single mention SEPSIS by the ER MD and ID for the same clinical presentation appears in the record. Please clarify if the diagnosis of SEPSIS is POA or ruled out. TEMP: 100.9, 102.1, 100, 101,3, 101.3, 97, 98.6, 103, 103, 99.8 HR: 133, 123, 102, 102, 102, 78, 102, 113, 104, 100, 89, 84, 102 WBC 11.4-> 19.2 L shift 5% BANDS, Lactate 2.7, Procalcitonin 3.18 A single mention or documentation of multiple diagnoses for the same clinical presentation appears in the record. Please clarify the diagnosis/diagnoses. Please also document if the condition is: -- Confirmed and current -- Confirmed, treated and resolved -- Ruled out -- Other, please specify PLEASE DOCUMENT ANY ADDITIONAL DIAGNOSES AND/OR SPECIFICITY IN THE PROGRESS NOTES AND/OR DISCHARGE ROCHA MMARY. Clinically unable to determine/unknown Disagree with the above request Need to discuss Query created by: Johanny Vegas on 12/04/2018 1:54 PM Electronically signed by: Grupo Gonzalez APN 12/04/2018 11:50 PM
== END 2018-12-03 18:25 | DRG 901 ==
LOC: H.ER 10:35 → H.ERHOLD 15:52 → H.TEL 18:27
PROVIDERS: ADMIT Family Medicine; ATTEND Family Medicine
DX: A41.9 Sepsis, unspecified organism (principal); L03.115 Cellulitis of right lower limb; E87.2 Acidosis; L40.50 Arthropathic psoriasis, unspecified; L03.114 Cellulitis of left upper limb; D89.9 Disorder involving the immune mechanism, unspecified; H40.9 Unspecified glaucoma; R73.03 Prediabetes; R51 Headache; H57.10 Ocular pain, unspecified eye

== ENCOUNTER 2018-12-03 17:13 | Inpatient (IN) | payer MEDICAID ==
[2018-12-03 19:05] VITALS: BMI 34.0
--- NOTE | 2018-12-04 00:28 | CP.PCM.DIS ---
Provider - Provider Date of Admission: 12/03/18 19:17 Attending physician: Alfredo Hull MD Consults: 12/04/18 10:00 Infectious Disease Consult Routine Comment: Consulting Provider: Chadd Neal Consulting Physician: Chadd Neal Reason for Consult: f/u cellulitis Time Spent in preparation of Discharge (in minutes): 30 Hospital Course - Hospital Course Hospital Course: Pt was admitted for cellulitis of the left arm and right leg. Infectious disease was consulted. The pt received Zosyn and Vancomycin antibiotics. After noted improvement, the Pt was discharged to TCU, where he will continue IV Vancomycin and Zosyn. Discharge Exam - Head Exam Head Exam: NORMAL INSPECTION, NORMOCEPHALIC - Eye Exam Eye Exam: EOMI, Normal appearance, PERRL Pupil Exam: NORMAL ACCOMODATION, PERRL - ENT Exam ENT Exam: Mucous Membranes Moist - Neck Exam Neck exam: Full Rom - Respiratory Exam Respiratory Exam: Clear to PA & Lateral, NORMAL BREATHING PATTERN - Cardiovascular Exam Cardiovascular Exam: REGULAR RHYTHM, +S1, +S2 - GI/Abdominal Exam GI & Abdominal Exam: Normal Bowel Sounds Discharge Plan - Follow Up Plan Condition: GOOD Disposition: HOME/ ROUTINE
[2018-12-04 06:39] LABS: BASO # 0.1 K/uL (0.0-0.2); BASO % 0.9 % (0.0-2.0); EOS # 0.7 K/uL (0.0-0.7); EOS % 7.2 % (0.0-4.0); HEMOGLOBIN 12.9 g/dL (12.0-18.0); LYMPH # 3.9 K/uL (1.0-4.3); LYMPH % 37.5 % (20.0-40.0); MEAN CELL VOLUME 78.2 fl (80.0-94.0); MEAN CORPUSCULAR HEMOGLOBIN 25.8 pg (27.0-31.0); MEAN PLATELET VOLUME 8.3 fl (7.2-11.7); MONO # 1.4 K/uL (0.0-0.8); MONO % 13.4 % (0.0-10.0); NEUT # 4.3 K/uL (1.8-7.0); NRBC % 0.1 % (0.0-0.0); RBC 4.98 Mil/uL (4.40-5.90); RED CELL DISTRIBUTION WIDTH 14.2 % (11.5-14.5); WHITE BLOOD COUNT 10.4 K/uL (4.8-10.8)
[2018-12-04 06:44] LABS: ALB/GLOB RATIO 1.1 (1.0-2.1); ALBUMIN 3.5 g/dL (3.5-5.0); ALT/SGPT 73 U/L (21-72); AST/SGOT 71 U/L (17-59); BLOOD UREA NITROGEN 15 mg/dl (9-20); GFR NON-AFRICAN AMERICAN > 60
[2018-12-04] MEDS: Enoxaparin 40 mg Syringe SC SCH (08:26)
--- NOTE | 2018-12-04 12:05 | CP.PCM.CON ---
History of Present Illness - History of Present Illness History of Present Illness: 58 year old male with medical history of psoriasis and pre-diabetes was treated on 4 N for severe cellulitis Failed out pt rx for cellulitis with Bactrim Has redness streaking up right leg from psoriatic lesion on RLE + lymphangitis Additionally, patient received a Humira injection 1 week ago and has worsening redness and tenderness on left, lateral arm along area of psoriasis, - Medical History PMH: Diabetes (pre-) Psoriasis on Humira Other PMH: glaucoma; psoriasis Review of Systems - Review of Systems All systems: reviewed and no additional remarkable complaints except - Constitutional Constitutional: As Per HPI - EENT Eyes: absent: As Per HPI, Blind Spots, Blurred Vision, Change in Vision, Decreased Night Vision, Diplopia, Discharge, Dry Eye, Exophthalmos, Floaters, Irritation, Itchy Eyes, Loss of Peripheral Vision, Pain, Photophobia, Requires Corrective Lenses, Sees Flashes, Spots in Vision, Tunnel Vision, Other Visual Disturbances, Loss of Vision, Other Ears: absent: As Per HPI, Decreased Hearing, Ear Discharge, Ear Pain, Tinnitus, Abnormal Hearing, Disequilibrium, Dizziness, Other Nose/Mouth/Throat: absent: As Per HPI, Epistaxis, Nasal Congestion, Nasal Discharge, Nasal Obstruction, Nasal Trauma, Nose Pain, Post Nasal Drip, Sinus Pain, Sinus Pressure, Bleeding Gums, Change in Voice, Dental Pain, Dry Mouth, Dysphagia, Halitosis, Hoarsness, Lip Swelling, Mouth Lesions, Mouth Pain, Odynophagia, Sore Throat, Throat Swelling, Tongue Swelling, Facial Pain, Neck Pain, Neck Mass, Other - Cardiovascular Cardiovascular: absent: As Per HPI, Acrocyanosis, Chest Pain, Chest Pain at Rest, Chest Pain with Activity, Claudication, Diaphoresis, Dyspnea, Dyspnea on Exertion, Edema, Irregular Heart Rhythm, Pain Radiating to Arm/Neck/Jaw, Leg Edema, Leg Ulcers, Lightheadedness, Orthopnea, Palpitations, Paroxysmal Nocturnal Dyspnea, Pedal Edema, Radiating Pain, Rapid Heart Rate, Slow Heart Rate, Syncope, Other - Respiratory Respiratory: absent: As Per HPI, Cough, Dyspnea, Hemoptysis, Dyspnea on Exertion, Wheezing, Snoring, Stridor, Pain on Inspiration, Chest Congestion, Excessive Mucous Production, Change in Mucous Color, Pain with Coughing, Other - Gastrointestinal Gastrointestinal: absent: As Per HPI, Abdominal Pain, Belching, Bloating, Change in Bowel Habits, Change in Stool Character, Coffee Ground Emesis, Constipation, Cramping, Diarrhea, Dyspepsia, Dysphagia, Early Satiety, Excessive Flatus, Fecal Incontinence, Heartburn, Hematemesis, Hematochezia, Loose Stools, Melena, Nausea, Odynophagia, Temesmus, Vomiting, Other - Genitourinary Genitourinary: absent: As Per HPI, Change in Urinary Stream, Difficulty Urinating, Dysuria, Flank Pain, Hematuria, Pyuria, Nocturia, Urinary In continence, Urinary Frequency, Urinary Hesitance, Urinary Urgency, Voiding Freq/Small Amts, Freq UTI, Hx Renal/Bladder Calculi, Hx /Renal Surgery, Bladder Distension, Other - Musculoskeletal Musculoskeletal: As Per HPI, Joint Swelling - Integumentary Integumentary: As Per HPI, Skin Pain, Wounds - Neurological Neurological: absent: As Per HPI, Abnormal Gait, Abnormal Hearing, Abnormal Movements, Abnormal Speech, Behavioral Changes, Burning Sensations, Confusion, Convulsions, Disequilibrium, Dizziness, Numbness, Focal Weakness, Frequent Falls, Headaches, Lack of Coordination, Loss of Vision, Memory Loss, Paresthesias, Radicular Pain, Restless Legs, Sensory Deficit, Syncope, Tingling, Tremor, Vertigo, Weakness, Other Visual Disturbances, Other - Psychiatric Psychiatric: absent: As Per HPI, Abnormal Sleep Pattern, Anhedonia, Anxiety, Auditory Hallucinations, Behavioral Changes, Change in Appetite, Change in Libido, Confusion, Depression, Difficulty Concentrating, Hallucinations, Homicidal Ideation, Hopelessness, Irritability, Memory Loss, Mood Swings, Panic Attacks, Paranoia, Suicidal Ideation, Visual Hallucinations, Tactile Chao lucinations, Other - Endocrine Endocrine: absent: As Per HPI, Change in Body Appearance, Change in Libido, Cold Intolorance, Deepening of Voice, Excessive Sweating, Fatigue, Flushing, Heat Intolorance, Increase in Ring/Shoe/Hat Size, Palpitations, Polydipsia, P olyphagia, Polyuria, Other - Hematologic/Lymphatic Hematologic: absent: As Per HPI, Easy Bleeding, Easy Bruising, Lymphadenopathy, Other Past Patient History - Past Medical History & Family History Past Medical History?: Yes - Past Social History Smoking Status: Former Smoker - CARDIAC Hx Cardiac Disorders: No - PULMONARY Hx Respiratory Disorders: No - NEUROLOGICAL Hx Neurological Disorder: No - HEENT Hx HEENT Problems: Yes Hx Glaucoma: Yes - RENAL Hx Chronic Kidney Disease: No - ENDOCRINE/METABOLIC Hx Endocrine Disorders: No Hx Diabetes Mellitus Type 2: (pre diabectic) - HEMATOLOGICAL/ONCOLOGICAL Hx Blood Disorders: No - INTEGUMENTARY Hx Dermatological Problems: Yes Hx Cellulitis: Yes (R leg L arm and L lower leg) Hx Psoriasis: Yes - MUSCULOSKELETAL/RHEUMATOLOGICAL Hx Musculoskeletal Disorders: No Hx Falls: No - GASTROINTESTINAL Hx Gastrointestinal Disorders: No - GENITOURINARY/GYNECOLOGICAL Hx Genitourinary Disorders: No - PSYCHIATRIC Hx Psychophysiologic Disorder: No Hx Substance Use: No - SURGICAL HISTORY Hx Surgeries: Yes - ANESTHESIA Hx Anesthesia: Yes Hx Anesthesia Reactions: No Hx Malignant Hyperthermia: No Meds Allergies/Adverse Reactions: Allergies Allergy/AdvReac Type Severity Reaction Status Date / Time detergent Allergy Mild RASH Uncoded 11/30/18 10:57 - Medications Medications: Current Medications Acetaminophen (Tylenol 325mg Tab) 650 mg PO Q6 PRN PRN Reason: Pain, Mild (1-3) Enoxaparin Sodium (Lovenox) 40 mg SC DAILY [facility]; Protocol Last Admin: 12/04/18 08:26 Dose: 40 mg Hydrocortisone (Cortizone 1% Cream) 1 applic TOP BID [facility] Last Admin: 12/04/18 08:26 Dose: 1 applic Vancomycin HCl 1 gm/ Sodium (Chloride) 250 mls @ 166.667 mls/hr IVPB Q12@0500,1700 [facility]; Protocol Last Admin: 12/04/18 05:00 Dose: 166.667 mls/hr Piperacillin Sod/Tazobactam (Sod 2.25 gm/ Sodium Chloride) 100 mls @ 100 mls/hr IVPB 0600,1200,1800,0000 [facility]; Protocol Last Admin: 12/04/18 06:00 Dose: 100 mls/hr Mupirocin (Bactroban Ointment) 1 applic TOP BID [facility] Last Admin: 12/04/18 08:27 Dose: 1 applic Tramadol HCl (Ultram) 50 mg PO Q6 PRN PRN Reason: Pain, moderate (4-7) Physical Exam - Constitutional Appears: Non-toxic, No Acute Distress, Chronically Ill - Head Exam Head Exam: ATRAUMATIC, NORMAL INSPECTION, NORMOCEPHALIC - Eye Exam Eye Exam: EOMI, Normal appearance, PERRL Pupil Exam: NORMAL ACCOMODATION, PERRL - ENT Exam ENT Exam: Mucous Membranes Moist, Normal Exam - Neck Exam Neck exam: Positive for: Normal Inspection - Respiratory Exam Respiratory Exam: Clear to Auscultation Bilateral, NORMAL BREATHING PATTERN - Cardiovascular Exam Cardiovascular Exam: REGULAR RHYTHM, +S1, +S2 - GI/Abdominal Exam GI & Abdominal Exam: Normal Bowel Sounds, Soft. absent: Tenderness - Rectal Exam Rectal Exam: Deferred - Exam Exam: NORMAL INSPECTION - Extremities Exam Extremities exam: Positive for: normal inspection - Back Exam Back exam: NORMAL INSPECTION - Neurological Exam Neurological exam: Alert, CN II-XII Intact, Normal Gait, Oriented x3, Reflexes Normal - Psychiatric Exam Psychiatric exam: Normal Affect, Normal Mood - Skin Skin Exam: Dry, Erythema Additional comments: cellulitis both legs improving lymphangitis Results - Vital Signs Recent Vital Signs: Last Vital Signs Temp 98.5 F 12/04/18 07:56 Pulse 75 12/04/18 07:56 Resp 20 12/04/18 07:56 BP 125/80 12/04/18 07:56 Pulse Ox 98 12/04/18 07:56 - Labs Result Diagrams: 12/04/18 05:45 12/04/18 05:45 Labs: Laboratory Results - last 24 hr 12/04/18 12/04/18 05:45 05:45 WBC 10.4 RBC 4.98 Hgb 12.9 Hct 39.0 MCV 78.2 L MCH 25.8 L MCHC 33.0 RDW 14.2 Plt Count 260 MPV 8.3 Neut % (Auto) 41.0 L Lymph % (Auto) 37.5 [place] % (Auto) 13.4 H Eos % (Auto) 7.2 H Baso % (Auto) 0.9 Neut # (Auto) 4.3 Lymph # (Auto) 3.9 [place] # (Auto) 1.4 H Eos # (Auto) 0.7 Baso # (Auto) 0.1 Sodium 140 Potassium 4.2 Chloride 106 Carbon Dioxide 27 Anion Gap 11 BUN 15 Creatinine 1.0 Est GFR ( Amer) > 60 Est GFR (Non-Af Amer) > 60 Random Glucose 95 Calcium 9.0 Total Bilirubin 0.4 AST 71 H D ALT 73 H D Alkaline Phosphatase 131 H Total Protein 6.8 Albumin 3.5 Globulin 3.3 Albumin/Globulin Ratio 1.1 Assessment & Plan (1) Cellulitis Status: Acute (2) Psoriasis Status: Acute (3) Psoriatic arthropathy Status: Acute (4) Sepsis Status: Acute - Assessment and Plan (Free Text) Assessment: Grp A strep culture positive from wound on admission OK to d/c Vanco cont IV Zosyn may need prolonged course of rx due to immunocompromised state
[2018-12-04] MEDS: Piperacillin/Tazobact 3.375 GM in Sodium Chloride 0.9% 100 ML IVPB SCH (17:06)
[2018-12-05] MEDS: Piperacillin/Tazobact 3.375 GM in Sodium Chloride 0.9% 100 ML IVPB SCH ×5 (00:30→23:15)
--- NOTE | 2018-12-05 01:25 | CP.PCM.HP ---
History of Present Illness - History of Present Illness History of Present Illness: HPI: 58 y/o male with a PMH of psoriasis and pre-DM was recently hospitalized on [facility]'s telemetry unit for cellulitis, predominantly on the right lower leg and the left arm. The pt suffers from psoriasis and recently received his first injection of Zoila 1 week ago. He is currently on Zosyn antibiotics. PMH: Pre-diabetes, Glaucoma, Psoriasis. PSH: None. Allergies: Detergent, unspecified ingredient in ibuprofen. Subjective Review of Systems: Reviewed and no additional remarkable complaints except reddened, painful skin to bilateral upper extremities and right leg. Objective Vital Signs Stable Appears: Anxious, Non-toxic, No Acute Distress. Head Exam: NORMAL INSPECTION, normocephalic. Eye Exam: Normal eye inspection, EOMI, PERRLA. Respiratory Exam: NORMAL BREATHING PATTERN, breath sounds clear bilaterally. Cardiovascular Exam: +S1, +S2. RRR. GI & Abdominal Exam: Soft, diffuse tenderness, distended. Bowel sounds normoactive. Neurological Exam: Alert, Awake, Oriented x3. Musculoskeletal Exam: 5/5 BUE strength, 5/5 BLE strength. Psychiatric exam: Normal mood. Calm and cooperative. Skin Exam: Erythema and psoriatic lesions to left upper extremity. Bright redness/erythema covering the right lower leg, as well as the posterior aspect of the left leg. Assessment/Impression/Plan: 1.) Cellulitis -Currently on Zosyn; initial plan is 10 days of IV antibiotics, per staff. -Infectious disease consult appreciated input. -Hydrocortisone topical. -Monitor for leukocytosis and s/s infection. -Continue current treatment. Present on Admission - Present on Admission Any Indicators Present on Admission: No Past Patient History - Past Medical History & Family History Past Medical History?: Yes - Past Social History Smoking Status: Former Smoker - CARDIAC Hx Cardiac Disorders: No - PULMONARY Hx Respiratory Disorders: No - NEUROLOGICAL Hx Neurological Disorder: No - HEENT Hx HEENT Problems: Yes Hx Glaucoma: Yes - RENAL Hx Chronic Kidney Disease: No - ENDOCRINE/METABOLIC Hx Endocrine Disorders: No Hx Diabetes Mellitus Type 2: (pre diabectic) - HEMATOLOGICAL/ONCOLOGICAL Hx Blood Disorders: No - INTEGUMENTARY Hx Dermatological Problems: Yes Hx Cellulitis: Yes (R leg L arm and L lower leg) Hx Psoriasis: Yes - MUSCULOSKELETAL/RHEUMATOLOGICAL Hx Musculoskeletal Disorders: No Hx Falls: No - GASTROINTESTINAL Hx Gastrointestinal Disorders: No - GENITOURINARY/GYNECOLOGICAL Hx Genitourinary Disorders: No - PSYCHIATRIC Hx Psychophysiologic Disorder: No Hx Substance Use: No - SURGICAL HISTORY Hx Surgeries: Yes - ANESTHESIA Hx Anesthesia: Yes Hx Anesthesia Reactions: No Hx Malignant Hyperthermia: No Meds Allergies/Adverse Reactions: Allergies Allergy/AdvReac Type Severity Reaction Status Date / Time detergent Allergy Mild RASH Uncoded 11/30/18 10:57 Results - Vital Signs Recent Vital Signs: Last Vital Signs Temp 98.4 F 12/04/18 19:43 Pulse 75 12/04/18 19:43 Resp 20 12/04/18 19:43 BP 116/75 12/04/18 19:43 Pulse Ox 96 12/04/18 19:43 - Labs Result Diagrams: 12/04/18 05:45 12/04/18 05:45 Labs: Laboratory Results - last 24 hr 12/04/18 12/04/18 05:45 05:45 WBC 10.4 RBC 4.98 Hgb 12.9 Hct 39.0 MCV 78.2 L MCH 25.8 L MCHC 33.0 RDW 14.2 Plt Count 260 MPV 8.3 Neut % (Auto) 41.0 L Lymph % (Auto) 37.5 [place] % (Auto) 13.4 H Eos % (Auto) 7.2 H Baso % (Auto) 0.9 Neut # (Auto) 4.3 Lymph # (Auto) 3.9 [place] # (Auto) 1.4 H Eos # (Auto) 0.7 Baso # (Auto) 0.1 Sodium 140 Potassium 4.2 Chloride 106 Carbon Dioxide 27 Anion Gap 11 BUN 15 Creatinine 1.0 Est GFR ( Amer) > 60 Est GFR (Non-Af Amer) > 60 Random Glucose 95 Calcium 9.0 Total Bilirubin 0.4 AST 71 H D ALT 73 H D Alkaline Phosphatase 131 H Total Protein 6.8 Albumin 3.5 Globulin 3.3 Albumin/Globulin Ratio 1.1 Assessment & Plan (1) Cellulitis Status: Acute (2) Psoriasis Status: Acute
[2018-12-05 05:45] LABS: BASO # 0.1 K/uL (0.0-0.2); BASO % 0.9 % (0.0-2.0); EOS # 0.8 K/uL (0.0-0.7); EOS % 8.1 % (0.0-4.0); HEMOGLOBIN 13.3 g/dL (12.0-18.0); LYMPH # 3.7 K/uL (1.0-4.3); LYMPH % 38.4 % (20.0-40.0); MEAN CELL VOLUME 78.5 fl (80.0-94.0); MEAN CORPUSCULAR HEMOGLOBIN 25.9 pg (27.0-31.0); MEAN CORPUSCULAR HGB CONC 32.9 g/dL (33.0-37.0); MEAN PLATELET VOLUME 7.8 fl (7.2-11.7); MONO # 1.4 K/uL (0.0-0.8); MONO % 14.9 % (0.0-10.0); NEUT # 3.6 K/uL (1.8-7.0); NEUT % 37.7 % (50.0-75.0); NRBC % 0.1 % (0.0-0.0); RBC 5.15 Mil/uL (4.40-5.90); WHITE BLOOD COUNT 9.6 K/uL (4.8-10.8)
[2018-12-05 05:59] LABS: ALBUMIN 3.7 g/dL (3.5-5.0); ALT/SGPT 114 U/L (21-72); AST/SGOT 110 U/L (17-59); BLOOD UREA NITROGEN 15 mg/dl (9-20); CALCIUM 9.4 mg/dL (8.4-10.2); GFR NON-AFRICAN AMERICAN > 60
[2018-12-05] MEDS: Enoxaparin 40 mg Syringe SC SCH (08:47)
--- NOTE | 2018-12-05 17:34 | CP.PCM.PN ---
Subjective - Date & Time of Evaluation Date of Evaluation: 12/05/18 Time of Evaluation: 08:00 - Subjective Subjective: afebrile 'cellulitis less Objective - Vital Signs/Intake and Output Vital Signs (last 24 hours): Temp Pulse Resp BP Pulse Ox 98.4 F 81 20 120/74 97 12/05/18 15:29 12/05/18 15:29 12/05/18 15:29 12/05/18 15:29 12/05/18 15:29 - Medications Medications: Current Medications Acetaminophen (Tylenol 325mg Tab) 650 mg PO Q6 PRN PRN Reason: Pain, Mild (1-3) Enoxaparin Sodium (Lovenox) 40 mg SC DAILY [facility]; Protocol Last Admin: 12/05/18 08:47 Dose: 40 mg Hydrocortisone (Cortizone 1% Cream) 1 applic TOP BID [facility] Last Admin: 12/05/18 16:58 Dose: 1 applic Piperacillin Sod/Tazobactam (Sod 3.375 gm/ Sodium Chloride) 100 mls @ 100 mls/hr IVPB 0600,1200,1800,0000 [facility]; Protocol Last Admin: 12/05/18 12:37 Dose: 100 mls/hr Mupirocin (Bactroban Ointment) 1 applic TOP BID [facility] Last Admin: 12/05/18 16:57 Dose: 1 applic Tramadol HCl (Ultram) 50 mg PO Q6 PRN PRN Reason: Pain, moderate (4-7) - Labs Labs: 12/05/18 05:30 12/05/18 05:30 - Constitutional Appears: Non-toxic, Chronically Ill - Head Exam Head Exam: ATRAUMATIC, NORMAL INSPECTION, NORMOCEPHALIC - Eye Exam Eye Exam: EOMI, Normal appearance, PERRL Pupil Exam: NORMAL ACCOMODATION, PERRL - ENT Exam ENT Exam: Mucous Membranes Moist, Normal Exam - Neck Exam Neck Exam: Full ROM, Normal Inspection. absent: Lymphadenopathy - Respiratory Exam Respiratory Exam: Clear to Ausculation Bilateral, NORMAL BREATHING PATTERN - Cardiovascular Exam Cardiovascular Exam: REGULAR RHYTHM, +S1, +S2. absent: Murmur - GI/Abdominal Exam GI & Abdominal Exam: Soft, Normal Bowel Sounds. absent: Tenderness - Rectal Exam Rectal Exam: Deferred - Exam Exam: NORMAL INSPECTION - Extremities Exam Extremities Exam: Full ROM, Normal Capillary Refill. absent: Joint Swelling, Normal Inspection, Pedal Edema Additional comments: cellulitis right leg + - Back Exam Back Exam: NORMAL INSPECTION - Neurological Exam Neurological Exam: Alert, Awake, CN II-XII Intact, Normal Gait, Oriented x3 - Psychiatric Exam Psychiatric exam: Normal Affect, Normal Mood - Skin Skin Exam: Dry, Intact, Normal Color, Warm Assessment and Plan (1) Cellulitis Status: Acute (2) Psoriasis Status: Acute (3) Psoriatic arthropathy Status: Acute (4) Sepsis Status: Acute - Assessment and Plan (Free Text) Assessment: cont IV then PO rx
[2018-12-06] MEDS: Piperacillin/Tazobact 3.375 GM in Sodium Chloride 0.9% 100 ML IVPB SCH ×4 (05:20→23:50)
[2018-12-06] MEDS: Enoxaparin 40 mg Syringe SC SCH (09:43)
--- NOTE | 2018-12-06 11:00 | CP.PCM.PN ---
Subjective - Date & Time of Evaluation Date of Evaluation: 12/06/18 Time of Evaluation: 10:00 - Subjective Subjective: cellulitis much improved denies fever / chills awake alert nad Objective - Vital Signs/Intake and Output Vital Signs (last 24 hours): Temp Pulse Resp BP Pulse Ox 98.4 F 68 20 102/57 L 97 12/06/18 08:18 12/06/18 08:18 12/06/18 08:18 12/06/18 08:18 12/06/18 08:18 - Medications Medications: Current Medications Acetaminophen (Tylenol 325mg Tab) 650 mg PO Q6 PRN PRN Reason: Pain, Mild (1-3) Enoxaparin Sodium (Lovenox) 40 mg SC DAILY [facility]; Protocol Last Admin: 12/06/18 09:43 Dose: 40 mg Hydrocortisone (Cortizone 1% Cream) 1 applic TOP BID [facility] Last Admin: 12/06/18 09:43 Dose: 1 applic Piperacillin Sod/Tazobactam (Sod 3.375 gm/ Sodium Chloride) 100 mls @ 100 mls/hr IVPB 0600,1200,1800,0000 [facility]; Protocol Last Admin: 12/06/18 05:20 Dose: 100 mls/hr Mupirocin (Bactroban Ointment) 1 applic TOP BID [facility] Last Admin: 12/06/18 09:43 Dose: 1 applic Tramadol HCl (Ultram) 50 mg PO Q6 PRN PRN Reason: Pain, moderate (4-7) - Labs Labs: 12/05/18 05:30 12/05/18 05:30 - Constitutional Appears: No Acute Distress, Chronically Ill - Head Exam Head Exam: ATRAUMATIC, NORMAL INSPECTION, NORMOCEPHALIC - Eye Exam Eye Exam: EOMI, Normal appearance, PERRL Pupil Exam: NORMAL ACCOMODATION, PERRL - ENT Exam ENT Exam: Mucous Membranes Moist, Normal Exam - Neck Exam Neck Exam: Full ROM, Normal Inspection. absent: Lymphadenopathy - Respiratory Exam Respiratory Exam: Clear to Ausculation Bilateral, NORMAL BREATHING PATTERN - Cardiovascular Exam Cardiovascular Exam: REGULAR RHYTHM, +S1, +S2. absent: Murmur - GI/Abdominal Exam GI & Abdominal Exam: Soft, Normal Bowel Sounds. absent: Tenderness - Rectal Exam Rectal Exam: Deferred - Exam Exam: NORMAL INSPECTION - Extremities Exam Extremities Exam: Full ROM, Normal Capillary Refill, Normal Inspection. absent: Joint Swelling, Pedal Edema - Back Exam Back Exam: NORMAL INSPECTION - Neurological Exam Neurological Exam: Alert, Awake, CN II-XII Intact, Normal Gait, Oriented x3 - Psychiatric Exam Psychiatric exam: Normal Affect, Normal Mood - Skin Skin Exam: Dry, Erythema, Intact Additional comments: cellulitis left leg + Assessment and Plan (1) Cellulitis Status: Acute (2) Psoriasis Status: Acute (3) Psoriatic arthropathy Status: Acute (4) Sepsis Status: Acute - Assessment and Plan (Free Text) Assessment: cont IV rx as ordered possible PO rx upon discharge
--- NOTE | 2018-12-06 14:08 | CP.PCM.PN ---
Subjective - Date & Time of Evaluation Date of Evaluation: 12/05/18 Time of Evaluation: 11:00 - Subjective Subjective: patient seen and examined at bedside. Interim events noted No complaints offered at this time, improvement of cellulitis denies cp/sob/fever/chills. available diagnostic data reviewed Review of Systems All systems: reviewed and no additional remarkable complaints except mentioned above Objective Vital Signs Stable - Constitutional Appears: Non-toxic, No Acute Distress Head Exam: NORMAL INSPECTION Eye Exam: Normal appearance Respiratory Exam: NORMAL BREATHING PATTERN Cardiovascular Exam: +S1, +S2 GI & Abdominal Exam: Soft Neurological Exam: Alert, Awake Psychiatric exam: Normal Affect, Normal Mood Skin Exam: Normal Color, Warm Assessment and Plan monitor vitals monitor labs Cont meds Cont tx consultants appreciated input rest of plan as ordered Assessment and Plan (1) Cellulitis Status: Acute
--- NOTE | 2018-12-06 14:09 | CP.PCM.PN ---
Subjective - Date & Time of Evaluation Date of Evaluation: 12/06/18 Time of Evaluation: 11:00 - Subjective Subjective: patient seen and examined at bedside. Interim events noted No complaints offered at this time denies cp/sob/fever/chills. available diagnostic data reviewed Review of Systems All systems: reviewed and no additional remarkable complaints except mentioned above Objective Vital Signs Stable - Constitutional Appears: Non-toxic, No Acute Distress Head Exam: NORMAL INSPECTION Eye Exam: Normal appearance Respiratory Exam: NORMAL BREATHING PATTERN Cardiovascular Exam: +S1, +S2 GI & Abdominal Exam: Soft Neurological Exam: Alert, Awake Psychiatric exam: Normal Affect, Normal Mood Skin Exam: Normal Color, Warm, cellulitis of leg improving Assessment and Plan monitor vitals monitor labs Cont meds Cont tx consultants appreciated input rest of plan as ordered Objective - Vital Signs/Intake and Output Vital Signs (last 24 hours): Temp Pulse Resp BP Pulse Ox 98.4 F 68 20 102/57 L 97 12/06/18 08:18 12/06/18 08:18 12/06/18 08:18 12/06/18 08:18 12/06/18 08:18 - Medications Medications: Current Medications Acetaminophen (Tylenol 325mg Tab) 650 mg PO Q6 PRN PRN Reason: Pain, Mild (1-3) Enoxaparin Sodium (Lovenox) 40 mg SC DAILY [facility]; Protocol Last Admin: 12/06/18 09:43 Dose: 40 mg Hydrocortisone (Cortizone 1% Cream) 1 applic TOP BID [facility] Last Admin: 12/06/18 09:43 Dose: 1 applic Piperacillin Sod/Tazobactam (Sod 3.375 gm/ Sodium Chloride) 100 mls @ 100 mls/hr IVPB 0600,1200,1800,0000 [facility]; Protocol Last Admin: 12/06/18 12:54 Dose: 100 mls/hr Mupirocin (Bactroban Ointment) 1 applic TOP BID [facility] Last Admin: 12/06/18 09:43 Dose: 1 applic Tramadol HCl (Ultram) 50 mg PO Q6 PRN PRN Reason: Pain, moderate (4-7) - Labs Labs: 12/05/18 05:30 12/05/18 05:30 Assessment and Plan (1) Cellulitis Status: Acute
[2018-12-07] MEDS: Piperacillin/Tazobact 3.375 GM in Sodium Chloride 0.9% 100 ML IVPB SCH ×3 (05:33→17:15)
[2018-12-07] MEDS: Enoxaparin 40 mg Syringe SC SCH (08:53)
--- NOTE | 2018-12-07 11:56 | CP.PCM.PN ---
Subjective - Date & Time of Evaluation Date of Evaluation: 12/07/18 Time of Evaluation: 11:56 - Subjective Subjective: patient seen and examined at bedside. Interim events noted No complaints offered at this time denies cp/sob/fever/chills. available diagnostic data reviewed Review of Systems All systems: reviewed and no additional remarkable complaints except mentioned above Objective Vital Signs Stable - Constitutional Appears: Non-toxic, No Acute Distress Head Exam: NORMAL INSPECTION Eye Exam: Normal appearance Respiratory Exam: NORMAL BREATHING PATTERN Cardiovascular Exam: +S1, +S2 GI & Abdominal Exam: Soft Neurological Exam: Alert, Awake Psychiatric exam: Normal Affect, Normal Mood Skin Exam: Normal Color, Warm, cellulitis of leg improving Assessment and Plan monitor vitals monitor labs Cont meds Cont tx consultants appreciated input rest of plan as ordered Objective - Vital Signs/Intake and Output Vital Signs (last 24 hours): Temp Pulse Resp BP Pulse Ox 98.4 F 67 20 115/75 98 12/07/18 08:18 12/07/18 08:18 12/07/18 08:18 12/07/18 08:18 12/07/18 08:18 - Medications Medications: Current Medications Acetaminophen (Tylenol 325mg Tab) 650 mg PO Q6 PRN PRN Reason: Pain, Mild (1-3) Hydrocortisone (Cortizone 1% Cream) 1 applic TOP BID [facility] Last Admin: 12/07/18 08:53 Dose: 1 applic Piperacillin Sod/Tazobactam (Sod 3.375 gm/ Sodium Chloride) 100 mls @ 100 mls/hr IVPB 0600,1200,1800,0000 [facility]; Protocol Last Admin: 12/07/18 05:33 Dose: 100 mls/hr Mupirocin (Bactroban Ointment) 1 applic TOP BID [facility] Last Admin: 12/07/18 08:53 Dose: 1 applic - Labs Labs: 12/05/18 05:30 12/05/18 05:30 Assessment and Plan (1) Cellulitis Status: Acute
--- NOTE | 2018-12-07 12:03 | CP.PCM.PN ---
Subjective - Date & Time of Evaluation Date of Evaluation: 12/07/18 Time of Evaluation: 09:00 - Subjective Subjective: afebrile improving Objective - Vital Signs/Intake and Output Vital Signs (last 24 hours): Temp Pulse Resp BP Pulse Ox 98.4 F 67 20 115/75 98 12/07/18 08:18 12/07/18 08:18 12/07/18 08:18 12/07/18 08:18 12/07/18 08:18 - Medications Medications: Current Medications Acetaminophen (Tylenol 325mg Tab) 650 mg PO Q6 PRN PRN Reason: Pain, Mild (1-3) Hydrocortisone (Cortizone 1% Cream) 1 applic TOP BID [facility] Last Admin: 12/07/18 08:53 Dose: 1 applic Piperacillin Sod/Tazobactam (Sod 3.375 gm/ Sodium Chloride) 100 mls @ 100 mls/hr IVPB 0600,1200,1800,0000 [facility]; Protocol Last Admin: 12/07/18 05:33 Dose: 100 mls/hr Mupirocin (Bactroban Ointment) 1 applic TOP BID [facility] Last Admin: 12/07/18 08:53 Dose: 1 applic - Labs Labs: 12/05/18 05:30 12/05/18 05:30 - Constitutional Appears: Non-toxic, Chronically Ill - Head Exam Head Exam: ATRAUMATIC, NORMAL INSPECTION, NORMOCEPHALIC - Eye Exam Eye Exam: EOMI, Normal appearance, PERRL Pupil Exam: NORMAL ACCOMODATION, PERRL - ENT Exam ENT Exam: Mucous Membranes Moist, Normal Exam - Neck Exam Neck Exam: Full ROM, Normal Inspection. absent: Lymphadenopathy - Respiratory Exam Respiratory Exam: Clear to Ausculation Bilateral, NORMAL BREATHING PATTERN - Cardiovascular Exam Cardiovascular Exam: REGULAR RHYTHM, +S1, +S2. absent: Murmur - GI/Abdominal Exam GI & Abdominal Exam: Soft, Normal Bowel Sounds. absent: Tenderness - Rectal Exam Rectal Exam: Deferred - Extremities Exam Extremities Exam: Full ROM, Normal Capillary Refill, Normal Inspection. absent: Joint Swelling, Pedal Edema - Back Exam Back Exam: NORMAL INSPECTION - Neurological Exam Neurological Exam: Alert, Awake, CN II-XII Intact, Normal Gait, Oriented x3 - Psychiatric Exam Psychiatric exam: Normal Affect, Normal Mood - Skin Skin Exam: Dry, Erythema, Intact, Rash, Warm Additional comments: right leg cellulitis improving Assessment and Plan (1) Cellulitis Status: Acute (2) Psoriasis Status: Acute (3) Psoriatic arthropathy Status: Acute (4) Sepsis Status: Acute - Assessment and Plan (Free Text) Assessment: improving on IV rx to complete 7 days
[2018-12-08] MEDS: Piperacillin/Tazobact 3.375 GM in Sodium Chloride 0.9% 100 ML IVPB SCH ×4 (00:18→17:50)
[2018-12-08] MEDS: Enoxaparin 40 mg Syringe SC SCH (08:26)
[2018-12-08 15:20] VITALS: RESP 20
[2018-12-09] MEDS: Piperacillin/Tazobact 3.375 GM in Sodium Chloride 0.9% 100 ML IVPB SCH ×5 (01:13→23:26)
[2018-12-09] MEDS: Enoxaparin 40 mg Syringe SC SCH (08:37)
--- NOTE | 2018-12-09 11:19 | CP.PCM.PN ---
Subjective - Date & Time of Evaluation Date of Evaluation: 12/08/18 Time of Evaluation: 11:00 - Subjective Subjective: patient seen and examined at bedside. Interim events noted No complaints offered at this time denies cp/sob/fever/chills. available diagnostic data reviewed Review of Systems All systems: reviewed and no additional remarkable complaints except mentioned above Objective Vital Signs Stable - Constitutional Appears: Non-toxic, No Acute Distress Head Exam: NORMAL INSPECTION Eye Exam: Normal appearance Respiratory Exam: NORMAL BREATHING PATTERN Cardiovascular Exam: +S1, +S2 GI & Abdominal Exam: Soft Neurological Exam: Alert, Awake Psychiatric exam: Normal Affect, Normal Mood Skin Exam: Normal Color, Warm, cellulitis of leg improving Assessment and Plan monitor vitals monitor labs Cont meds Cont tx consultants appreciated input rest of plan as ordered Objective - Vital Signs/Intake and Output Vital Signs (last 24 hours): Temp Pulse Resp BP Pulse Ox 97.8 F 73 20 115/76 97 12/09/18 07:50 12/09/18 07:50 12/09/18 07:50 12/09/18 07:50 12/09/18 07:50 - Medications Medications: Current Medications Acetaminophen (Tylenol 325mg Tab) 650 mg PO Q6 PRN PRN Reason: Pain, Mild (1-3) Enoxaparin Sodium (Lovenox) 40 mg SC DAILY [facility]; Protocol Last Admin: 12/09/18 08:37 Dose: 40 mg Hydrocortisone (Cortizone 1% Cream) 1 applic TOP BID [facility] Last Admin: 12/09/18 08:41 Dose: 1 applic Piperacillin Sod/Tazobactam (Sod 3.375 gm/ Sodium Chloride) 100 mls @ 100 mls/hr IVPB 0600,1200,1800,0000 [facility]; Protocol Last Admin: 12/09/18 05:38 Dose: 100 mls/hr Mupirocin (Bactroban Ointment) 1 applic TOP BID [facility] Last Admin: 12/09/18 08:42 Dose: 1 applic - Labs Labs: 12/05/18 05:30 12/05/18 05:30 Assessment and Plan (1) Cellulitis Status: Acute
--- NOTE | 2018-12-09 12:04 | CP.PCM.PN ---
Subjective - Date & Time of Evaluation Date of Evaluation: 12/09/18 Time of Evaluation: 09:00 - Subjective Subjective: improving consider d/c on Bactroban topical Objective - Vital Signs/Intake and Output Vital Signs (last 24 hours): Temp Pulse Resp BP Pulse Ox 97.8 F 73 20 115/76 97 12/09/18 07:50 12/09/18 07:50 12/09/18 07:50 12/09/18 07:50 12/09/18 07:50 - Medications Medications: Current Medications Acetaminophen (Tylenol 325mg Tab) 650 mg PO Q6 PRN PRN Reason: Pain, Mild (1-3) Enoxaparin Sodium (Lovenox) 40 mg SC DAILY [facility] [place]; Protocol Last Admin: 12/09/18 08:37 Dose: 40 mg Hydrocortisone (Cortizone 1% Cream) 1 applic TOP BID [facility] [place] Last Admin: 12/09/18 08:41 Dose: 1 applic Piperacillin Sod/Tazobactam (Sod 3.375 gm/ Sodium Chloride) 100 mls @ 100 mls/hr IVPB 0600,1200,1800,0000 [facility] [place]; Protocol Last Admin: 12/09/18 05:38 Dose: 100 mls/hr Mupirocin (Bactroban Ointment) 1 applic TOP BID [facility] Last Admin: 12/09/18 08:42 Dose: 1 applic - Labs Labs: 12/05/18 05:30 12/05/18 05:30 - Constitutional Appears: Well - Head Exam Head Exam: ATRAUMATIC, NORMAL INSPECTION, NORMOCEPHALIC - Eye Exam Eye Exam: EOMI, Normal appearance, PERRL Pupil Exam: NORMAL ACCOMODATION, PERRL - ENT Exam ENT Exam: Mucous Membranes Moist, Normal Exam - Neck Exam Neck Exam: Full ROM, Normal Inspection. absent: Lymphadenopathy - Respiratory Exam Respiratory Exam: Clear to Ausculation Bilateral, NORMAL BREATHING PATTERN - Cardiovascular Exam Cardiovascular Exam: REGULAR RHYTHM, +S1, +S2. absent: Murmur - GI/Abdominal Exam GI & Abdominal Exam: Soft, Normal Bowel Sounds. absent: Tenderness - Rectal Exam Rectal Exam: Deferred - Exam Exam: NORMAL INSPECTION - Extremities Exam Extremities Exam: Full ROM, Normal Capillary Refill, Normal Inspection. absent: Joint Swelling, Pedal Edema - Back Exam Back Exam: NORMAL INSPECTION - Neurological Exam Neurological Exam: Alert, Awake, CN II-XII Intact, Normal Gait, Oriented x3 - Psychiatric Exam Psychiatric exam: Normal Affect, Normal Mood - Skin Skin Exam: Dry, Intact, Normal Color, Warm Assessment and Plan (1) Cellulitis Status: Acute (2) Psoriasis Status: Acute (3) Psoriatic arthropathy Status: Acute (4) Sepsis Status: Acute - Assessment and Plan (Free Text) Assessment: cont iv rx for now 'possiblr d/c on topical bactroban
[2018-12-09 19:40] VITALS: PULSE 73
[2018-12-10] MEDS: Piperacillin/Tazobact 3.375 GM in Sodium Chloride 0.9% 100 ML IVPB SCH ×2 (05:37→12:06)
[2018-12-10 07:54] VITALS: BP 115/78; TEMP 98.2; O2SAT 99
--- NOTE | 2018-12-10 08:32 | CP.PCM.PN ---
Subjective - Date & Time of Evaluation Date of Evaluation: 12/09/18 Time of Evaluation: 09:00 - Subjective Subjective: Pt seem and assessed at bedside. Marked improvement noted to BLE; erythema has mostly subsided. Subjective Review of Systems: Reviewed and no additional remarkable complaints except improving reddened, painful skin to bilateral legs. Objective Vital Signs Stable Appears: Anxious, Non-toxic, No Acute Distress. Head Exam: NORMAL INSPECTION, normocephalic. Eye Exam: Normal eye inspection, EOMI, PERRLA. Respiratory Exam: NORMAL BREATHING PATTERN, breath sounds clear bilaterally. Cardiovascular Exam: +S1, +S2. RRR. GI & Abdominal Exam: Soft, diffuse tenderness, distended. Bowel sounds normoactive. Neurological Exam: Alert, Awake, Oriented x3. Musculoskeletal Exam: 5/5 BUE strength, 5/5 BLE strength. Psychiatric exam: Normal mood. Calm and cooperative. Skin Exam: redness/erythema covering the right lower leg, as well as the posterior aspect of the left leg. Assessment/Impression/Plan: 1.) Cellulitis -Currently on Zosyn. -On day 5 of 7 of IV antibiotics. -Infectious disease consult appreciated input. -Continue PT/OT. -marked improvement in erythema. -Monitor for new onset s/s infection. Objective - Vital Signs/Intake and Output Vital Signs (last 24 hours): Temp Pulse Resp BP Pulse Ox 98.2 F 73 20 115/78 99 12/10/18 07:53 12/10/18 07:53 12/10/18 07:53 12/10/18 07:53 12/10/18 07:53 - Medications Medications: Current Medications Acetaminophen (Tylenol 325mg Tab) 650 mg PO Q6 PRN PRN Reason: Pain, Mild (1-3) Enoxaparin Sodium (Lovenox) 40 mg SC DAILY [facility]; Protocol Last Admin: 12/09/18 08:37 Dose: 40 mg Hydrocortisone (Cortizone 1% Cream) 1 applic TOP BID [facility] Last Admin: 12/09/18 18:23 Dose: 1 applic Piperacillin Sod/Tazobactam (Sod 3.375 gm/ Sodium Chloride) 100 mls @ 100 mls/hr IVPB 0600,1200,1800,0000 [facility]; Protocol Last Admin: 12/10/18 05:37 Dose: 100 mls/hr Mupirocin (Bactroban Ointment) 1 applic TOP BID [facility] Last Admin: 12/09/18 18:23 Dose: 1 applic - Labs Labs: 12/05/18 05:30 12/05/18 05:30 Assessment and Plan (1) Cellulitis Status: Acute (2) Psoriasis Status: Acute
[2018-12-10] MEDS: Enoxaparin 40 mg Syringe SC SCH (08:53)
--- NOTE | 2018-12-12 02:46 | CP.PCM.DIS ---
Provider - Provider Date of Admission: 12/03/18 19:17 Attending physician: Alfredo Hull MD Consults: 12/04/18 08:00 Wound Care [Nursing Referral for Wound Care] Routine Comment: Physician Instructions: Reason For Exam: cellulitis and psoriasis 12/04/18 10:00 Infectious Disease Consult Routine Comment: Consulting Provider: Chadd Neal Consulting Physician: Chadd Neal Reason for Consult: f/u cellulitis Time Spent in preparation of Discharge (in minutes): 30 Diagnosis - Discharge Diagnosis (1) Cellulitis Status: Acute (2) Psoriasis Status: Acute Hospital Course - Lab Results Lab Results: Most Recent Lab Values WBC 9.6 K/uL (4.8-10.8) 12/05/18 05:30 RBC 5.15 Mil/uL (4.40-5.90) 12/05/18 05:30 Hgb 13.3 g/dL (12.0-18.0) 12/05/18 05:30 Hct 40.4 % (35.0-51.0) 12/05/18 05:30 MCV 78.5 fl (80.0-94.0) L 12/05/18 05:30 MCH 25.9 pg (27.0-31.0) L 12/05/18 05:30 MCHC 32.9 g/dL (33.0-37.0) L 12/05/18 05:30 RDW 14.0 % (11.5-14.5) 12/05/18 05:30 Plt Count 283 K/uL (130-400) 12/05/18 05:30 MPV 7.8 fl (7.2-11.7) 12/05/18 05:30 Neut % (Auto) 37.7 % (50.0-75.0) L 12/05/18 05:30 Lymph % (Auto) 38.4 % (20.0-40.0) 12/05/18 05:30 [place] % (Auto) 14.9 % (0.0-10.0) H 12/05/18 05:30 Eos % (Auto) 8.1 % (0.0-4.0) H 12/05/18 05:30 Baso % (Auto) 0.9 % (0.0-2.0) 12/05/18 05:30 Neut # (Auto) 3.6 K/uL (1.8-7.0) 12/05/18 05:30 Lymph # (Auto) 3.7 K/uL (1.0-4.3) 12/05/18 05:30 [place] # (Auto) 1.4 K/uL (0.0-0.8) H 12/05/18 05:30 Eos # (Auto) 0.8 K/uL (0.0-0.7) H 12/05/18 05:30 Baso # (Auto) 0.1 K/uL (0.0-0.2) 12/05/18 05:30 Sodium 139 mmol/l (132-148) 12/05/18 05:30 Potassium 4.3 MMOL/L (3.6-5.0) 12/05/18 05:30 Chloride 106 mmol/L (98-107) 12/05/18 05:30 Carbon Dioxide 27 mmol/L (22-30) 12/05/18 05:30 Anion Gap 10 (10-20) 12/05/18 05:30 BUN 15 mg/dl (9-20) 12/05/18 05:30 Creatinine 1.1 mg/dl (0.8-1.5) 12/05/18 05:30 Est GFR ( Amer) > 60 12/05/18 05:30 Est GFR (Non-Af Amer) > 60 12/05/18 05:30 Random Glucose 101 mg/dL (75-110) 12/05/18 05:30 Calcium 9.4 mg/dL (8.4-10.2) 12/05/18 05:30 Total Bilirubin 0.4 mg/dl (0.2-1.3) 12/05/18 05:30 AST 110 U/L (17-59) H D 12/05/18 05:30 ALT 114 U/L (21-72) H D 12/05/18 05:30 Alkaline Phosphatase 123 U/L (38-126) 12/05/18 05:30 Total Protein 7.3 G/DL (6.3-8.2) 12/05/18 05:30 Albumin 3.7 g/dL (3.5-5.0) 12/05/18 05:30 Globulin 3.6 gm/dL (2.2-3.9) 12/05/18 05:30 Albumin/Globulin Ratio 1.0 (1.0-2.1) 12/05/18 05:30 - Hospital Course Hospital Course: Pt was admitted for BLE cellulitis. He was treated with IV antibiotics and infectious disease was consulted. After several days of IV abx on TCU, the pt was discharged home. He will use bactroban to his BLE. Discharge Exam - Head Exam Head Exam: ATRAUMATIC, NORMAL INSPECTION, NORMOCEPHALIC - Eye Exam Eye Exam: Normal appearance Pupil Exam: NORMAL ACCOMODATION - ENT Exam ENT Exam: Mucous Membranes Moist - Neck Exam Neck exam: Full Rom - Respiratory Exam Respiratory Exam: NORMAL BREATHING PATTERN - Cardiovascular Exam Cardiovascular Exam: REGULAR RHYTHM - GI/Abdominal Exam GI & Abdominal Exam: Normal Bowel Sounds - Extremities Exam Extremities exam: full ROM - Back Exam Back exam: NORMAL INSPECTION - Neurological Exam Neurological exam: Alert, Oriented x3 - Psychiatric Exam Psychiatric exam: Normal Affect, Normal Mood - Skin Skin Exam: Dry, Warm Additional comments: mild, healed redness to BLE Discharge Plan - Follow Up Plan Condition: GOOD Disposition: HOME/ ROUTINE Instructions: Cellulitis (DC), Cellulitis (GEN) Additional Instructions: Follow up with Katlyn London on december 16 at 2:15 pm. Continue Bactroban ointment, apply in am and in the afternoon to redness on both lower legs x 1 week or until seen by Dr. Sebastián Seaman. Continue with previously prescribed ointments for psoriasis and follow up with your still worker helper. Activities as tolerated.
== END 2018-12-10 14:00 | disposition home or self-care (01) | DRG 901 ==
LOC: H.TCU 19:17
PROVIDERS: ADMIT Family Medicine; ATTEND Family Medicine
DX: A41.9 Sepsis, unspecified organism (principal); L03.114 Cellulitis of left upper limb; L03.115 Cellulitis of right lower limb; L40.50 Arthropathic psoriasis, unspecified; L03.116 Cellulitis of left lower limb; Z87.891 Personal history of nicotine dependence; E11.9 Type 2 diabetes mellitus without complications; H40.9 Unspecified glaucoma